=== PATIENT | female | born 1940 | race African-American/Black ===

== ENCOUNTER 2016-07-19 16:01 | Inpatient (IN) | payer MEDICARE, OTHER ==
[~2016-07-19] VITALS: Ht 162.6 cm; Wt 90.7 kg
[2016-07-19] MEDS ORDERED: METFORMIN HCL500 M1 ORAL (16:06)
[2016-07-19] MEDS ORDERED: CATAPRES0.1 MG ORAL (16:06)
[2016-07-19] MEDS ORDERED: ATENOLOL25 MG ORAL (16:06)
[2016-07-19] MEDS ORDERED: CLOPIDOGREL75 MG ORAL (16:06)
[2016-07-19] MEDS ORDERED: CRESTOR10 M2 ORAL (16:06)
[2016-07-19] MEDS ORDERED: FLECAINIDE ACE100 MG ORAL (16:06)
[2016-07-19 17:05] VITALS: BP 226/96
[2016-07-19 17:33] LABS: LYMPHOCYTES % (AUTO) 18.6 % (20.0-45.0); MEAN CORPUSCULAR HEMOGLOBIN 26.1 PG (27.0-31.0); MEAN CORPUSCULAR HGB CONC 29.6 G/DL (32.0-36.0); MEAN CORPUSCULAR VOLUME 88 FL (80-99); MEAN PLATELET VOLUME 7.4 FL (6.5-10.1); MONOCYTES % (AUTO) 5.4 % (1.0-10.0); NEUTROPHILS % (AUTO) 74.1 % (45.0-75.0); PLATELET COUNT 295 K/UL (150-450); RED BLOOD COUNT 4.08 M/UL (4.20-5.40); RED CELL DISTRIBUTION WIDTH 14.7 % (11.6-14.8); WHITE BLOOD COUNT 9.2 K/UL (4.8-10.8)
[2016-07-19 17:35] LABS: ALANINE AMINOTRANSFERASE 10 U/L (3-33); ANION GAP 17 (5-15); ASPARTATE AMINO TRANSFERASE 17 U/L (5-40); CALCIUM 10.1 mg/dL (8.6-10.2); CARBON DIOXIDE 27 mEQ/L (20-30); CHLORIDE 96 mEQ/L (98-107); CREATININE 0.8 mg/dL (0.5-0.9); HEMOLYSIS 2; POTASSIUM 3.4 mEQ/L (3.4-4.9); SODIUM 140 mEQ/L (135-145); TOTAL PROTEIN 8.1 g/dL (6.6-8.7)
[2016-07-19 17:36] LABS: TROPONIN I < 0.30 ng/mL (<=0.30)
[2016-07-19 17:46] LABS: CKMB 1.7 ng/mL (< 3.8)
[2016-07-19 18:00] VITALS: BP 211/114
[2016-07-19] MEDS ORDERED: Morphine Sulfate 2mg/ml Inj IVP ONE (18:30)
[2016-07-19] MEDS ORDERED: cloNIDine 0.2mg Tab ORAL ONE (18:30)
[2016-07-19 18:57] VITALS: BP 214/141
[2016-07-19 20:28] VITALS: BP 198/100
--- NOTE | 2016-07-19 20:36 | Emergency Room Report ---
History of Present Illness General Chief Complaint: Chest Pain Source: Patient, EMS Present Illness HPI [id number] with HTN, DM, HLD, on plavix for previous MT "years ago" with substernal non-radiating chest pain since last night. No assoc SOB, fever/chills, cough. Took a home SL nitro last night with some relief. Took another one this morning. Given additional nitro spray and ASA from EMS. Did NOT take any of her BP meds or Plavix today. Allergies: Coded Allergies: No Known Allergies (Unverified , 07/19/16) Patient History Past Medical History: DM, HTN, MT, other - HLD Past Surgical History: none Pertinent Family History: none Social History: Denies: alcohol use, drug use, smoking Now: No Immunizations: UTD Reviewed Nursing Documentation: PMH: Agreed, PSxH: Agreed Nursing Documentation-PMH Hx Cardiac Problems: Yes - STENT X 2 (2004) Hx Hypertension: Yes Hx Diabetes: Yes Review of Systems All Other Systems: negative except mentioned in HPI Physical Exam Vital Signs Date Time Temp Pulse Resp B/P Pulse Ox O2 Delivery O2 Flow Rate FiO2 07/19/16 16:00 98.2 101 14 226/96 99 Room Air Sp02 EP Interpretation: reviewed, abnormal General Appearance: normal inspection, well appearing, no apparent distress, alert, GCS 15, non-toxic Head: normocephalic, atraumatic Eyes: bilateral eye EOMI, bilateral eye PERRL ENT: normal ENT inspection, hearing grossly normal, normal voice Neck: normal inspection, full range of motion, supple, no bony tend Respiratory: normal inspection, lungs clear, normal breath sounds, no respiratory distress, no retraction, no wheezing Cardiovascular #1: regular rate, rhythm, no edema Gastrointestinal: normal inspection, normal bowel sounds, non tender, soft, no guarding, no hernia Genitourinary: no CVA tenderness Musculoskeletal: normal inspection, back normal, normal range of motion, Lauren' s Sign negative Neurologic: normal inspection, alert, oriented x3, responsive, training manager III-XII nml as tested, motor strength/tone normal, speech normal Psychiatric: normal inspection, judgement/insight normal, mood/affect normal Skin: normal inspection, normal color, no rash Lymphatic: normal inspection Medical Decision Making Medicare Attestation I Renaldo Alvarez MD hereby attest that the medical record entry for date of service, 03/21/16 accurately reflects signatures/notations that I made in my capacity as MD when I treated/diagnosed the above listed Medicare beneficiary. I attest that this information is true, accurate and complete to the best of my knowledge. I understand that any falsification, omission, or concealment of material fact may subject me to administrative, civil, or criminal liability. This patient warrants hospital admission for extreme of age and has a condition that cannot be treated as outpatient. Diagnostic Impression: Primary Impression: Chest pain Qualified Codes: R07.9 - Chest pain, unspecified Additional Impression: Hypertension Qualified Codes: I10 - Essential (primary) hypertension ER Course Labs: H&H stable. No leuks. Troponin 0. ECG: no ischemia. BP meds and Plavix given here Addtional nitro paste given here. Feels better now Admitted to Dr Michelle for tele at 830pm for ACS rule out. EKG Diagnostic Results Rate: normal Rhythm: NSR ST Segments: no acute changes Rhythm Strip Diag. Results EP Interpretation: yes Rate: 75 Rhythm: NSR, no PVC's, no ectopy Chest X-Ray Diagnostic Results EP Interpretation: Yes Findings: no consolidation, no effusion, no pneumothorax, no acute cardiopulmonary disease Number of Views: 1 Last Vital Signs Date Time Temp Pulse Resp B/P Pulse Ox O2 Delivery O2 Flow Rate FiO2 07/19/16 18:57 101 20 214/141 100 Room Air 07/19/16 17:05 98.2 Status: improved Disposition: ADMITTED INPATIENT Condition: Serious Referrals: NOT CHOSEN IPA/,REFERRING (PCP) RENALDO ALVAREZ M.D. Jul 19, 2016 20:36
[2016-07-19 21:37] LABS: TROPONIN I < 0.30 ng/mL (<=0.30)
[2016-07-19 21:45] VITALS: BP 201/118
[2016-07-19] MEDS ORDERED: Labetalol 5mg/ml 20ml vial IV STA (22:09)
[2016-07-19] MEDS ORDERED: LORazepam Inj 2mg/ml 1ml IV ONE (22:15)
[2016-07-19 22:23] VITALS: BP 161/82
[2016-07-19] MEDS ORDERED: Atenolol 25mg tab ORAL ONE (22:30)
[2016-07-20 00:13] VITALS: BP 183/100
[2016-07-20 04:06] VITALS: BP 133/65
[2016-07-20] MEDS: NovoLOG Insulin Flexpen SUBQ SCH ×4 (06:15→21:32)
[2016-07-20 07:19] LABS: BASOPHILS % (AUTO) 0.5 % (0.0-2.0); EOSINOPHILS % (AUTO) 0.9 % (0.0-3.0); MEAN CORPUSCULAR HEMOGLOBIN 26.3 PG (27.0-31.0); MEAN CORPUSCULAR HGB CONC 30.9 G/DL (32.0-36.0); MEAN CORPUSCULAR VOLUME 85 FL (80-99); MEAN PLATELET VOLUME 7.6 FL (6.5-10.1); MONOCYTES % (AUTO) 9.4 % (1.0-10.0); NEUTROPHILS % (AUTO) 70.1 % (45.0-75.0); PLATELET COUNT 355 K/UL (150-450); RED BLOOD COUNT 4.09 M/UL (4.20-5.40); RED CELL DISTRIBUTION WIDTH 14.7 % (11.6-14.8); WHITE BLOOD COUNT 10.6 K/UL (4.8-10.8)
[2016-07-20 07:27] LABS: ALANINE AMINOTRANSFERASE 9 U/L (3-33); ANION GAP 16 (5-15); ASPARTATE AMINO TRANSFERASE 17 U/L (5-40); CARBON DIOXIDE 29 mEQ/L (20-30); CHLORIDE 98 mEQ/L (98-107); CREATININE 0.9 mg/dL (0.5-0.9); HEMOLYSIS 2; POTASSIUM 3.4 mEQ/L (3.4-4.9); SODIUM 143 mEQ/L (135-145); TOTAL PROTEIN 7.6 g/dL (6.6-8.7)
[2016-07-20 08:25] VITALS: BP 158/83
[2016-07-20] MEDS: metFORMIN 500mg tab ORAL SCH ×2 (08:48→17:23)
[2016-07-20 11:24] VITALS: BP 147/77
--- NOTE | 2016-07-20 14:26 | Diagnostic Imaging Report ---
Indication: PAIN Technique: One view of the chest Comparison: none Findings: There is some atelectasis at the left lateral lung base. The heart size is normal. Aorta is tortuous and calcified. The upper mediastinum is unremarkable Impression: Left lateral basilar atelectasis. No acute process
--- NOTE | 2016-07-20 14:40 | General Progress Note ---
Progress Note Progress Note [id number] full consult dictated WILLIAM HERNANDEZ Jul 20, 2016 14:40
[2016-07-20 16:00] VITALS: BP 142/83
[2016-07-20 17:24] LABS: APPEARANCE,URINE CLEAR; KETONES,URINE NEGATIVE (NEGATIVE); LEUKOCYTE ESTERASE ,URINE NEGATIVE (NEGATIVE); NITRITE,URINE NEGATIVE (NEGATIVE); PH,URINE 6 (4.5-8.0); PROTEIN,URINE 2+ (NEGATIVE); UROBILINOGEN,URINE NORMAL MG/DL (0.0-1.0)
[2016-07-20 17:40] LABS: CREATININE, RANDOM URINE 157.9 mg/dL
[2016-07-20 17:44] LABS: RBC,URINE 0-2 /HPF (0 - 2)
[2016-07-20 17:45] LABS: BACTERIA,URINE FEW /HPF; SQUAMOUS EPITHELIAL CELL,UR FEW /LPF (NONE/OCC); WBC,URINE 0-2 /HPF (0 - 2)
--- NOTE | 2016-07-20 19:37 | History and Physical Report ---
DATE OF ADMISSION: 07/19/2016 HISTORY OF PRESENT ILLNESS: The patient is admitted for chest pain, rule out acute coronary syndrome. The patient is at very high risk of acute coronary disease. Her risk factors being her age, prior history of HI, hyperlipidemia, NIDDM, and hypertension. The patient states that she had chest pains two days ago that was initially relieved with nitroglycerin, but the second time, it was not. That was when, the patient decided to come to the ER and was admitted. The patient is status post HI in the past and has coronary stents x2. Denies orthopnea. Denies exertional shortness of breath. PAST MEDICAL HISTORY: CAD, status post HI; hypertension; NIDDM; and hyperlipidemia. PAST SURGICAL HISTORY: Stent x2, hysterectomy, and PTCA. MEDICATIONS: Plavix, clonidine, atenolol, metformin, and Crestor. FAMILY HISTORY: She does have history of hypertension and diabetes as well as heart disease. SOCIAL HISTORY: The patient has remote history of smoking. No history of drug or alcohol abuse. Lives at home alone. REVIEW OF SYSTEMS: HEENT: Denies headache. Respiratory: Denies shortness of breath. Denies cough. Cardiovascular: Reports chest pain for the past two days. No radiation. No palpitation. No shortness of breath or cough. Gastrointestinal: Does have occasional heartburn. Denies abdominal pain. Extremities: Denies pain in lower extremities. Central Nervous System: Denies change in vision or speech pattern. PHYSICAL EXAMINATION: VITAL SIGNS: Temperature is 98.3, pulse 74, and blood pressure is 133/65. HEENT: PERRLA. NECK: Supple. No lymphadenopathy. CHEST: Clear to auscultation. CARDIOVASCULAR: Regular rate and rhythm. . GASTROINTESTINAL: Soft, nontender, and nondistended. No organomegaly. EXTREMITIES: 1+ edema. Reflexes are equal on both sides. Moves all four extremities. LABORATORY AND DIAGNOSTIC DATA: WBC of 9.2, hemoglobin of 10.6, and platelets 295,000. Sodium 140, BUN 3.4, BUN of 10, creatinine of 0.8, and glucose of 136. EKG does not show any ST depression or elevations. ASSESSMENT AND PLAN: Chest pain. Troponin is negative so far. Rule out acute coronary syndrome. The patient is a very high risk for myocardial infarction given her previous history of myocardial infarction as well as risk factors of hypertension, diabetes, hyperlipidemia, obesity, as well as age. I have asked Dr. Pablo and Dr. Heaton to see the patient for the elevated blood pressure and chest pain workup. Christopher Naranjo M.D. DR: SUZIE JOB#: [id number] CC:
[2016-07-20 20:00] VITALS: BP 143/75
[2016-07-20] MEDS ORDERED: LORazepam 1mg tab ORAL PRN (20:15)
[2016-07-20] MEDS: Atenolol 25mg tab ORAL SCH (22:05)
[2016-07-20] MEDS: Aspirin EC 81mg tab ORAL SCH (22:05)
--- NOTE | 2016-07-20 22:28 | Consultation ---
DATE OF CONSULTATION: 07/20/2016 NEPHROLOGY CONSULTATION: REFERRING PHYSICIAN: Christopher Naranjo M.D. REASON FOR CONSULTATION: Uncontrolled hypertension and possible history of diabetic nephropathy. HISTORY OF PRESENT ILLNESS: The patient is a 76-year-old female with past medical history significant for diabetes, hypertension, history of NJ in 2004, and history of morbid obesity, who apparently presented to the emergency room at [facility] complaining of chest pain. Her chest pain started around Monday night which was associated with some palpitation. The patient received sublingual nitroglycerin, the pain subsided. Again, the next day, which was Monday, a day before prior hospital visit. She started having the palpitation which was associated with chest pain. The chest pain came with palpitation. The chest pain was not radiating to her left arm and was not associated with shortness of breath and she described it as substernal pain, 8/10 associated with palpitation, not radiating, was not associated with shortness of breath. She described the pain as sharp pain lasted for many hours. The patient basically was described the pain totally different than the first time when she had an NJ. She came to the emergency room and was admitted with diagnosis of acute coronary syndrome and found to have an elevated blood pressure. I was called for management of the issue. PAST MEDICAL HISTORY: 1. Diabetes. 2. Hypertension. 3. Diabetic retinopathy. 4. Dyslipidemia. 5. Hypertension. 6. History of NJ in 2004. PAST SURGICAL HISTORY: None. MEDICATIONS: Home medications are including, 1. Metformin 500 mg p.o. daily. 2. Insulin. 3. Clonidine 0.1 mg. 4. Crestor 10 mg p.o. daily. 5. Atenolol 25 mg. 6. Plavix 75 mg p.o. daily. SOCIAL HISTORY: Quit smoking many years ago. She lives alone. There is no history of alcohol or drug use. FAMILY HISTORY: Negative for any history of premature heart disease. REVIEW OF SYSTEMS: General: She complain of generalized weakness. HEENT: Denied any blurry vision, headache, or neck stiffness. Pulmonary: No shortness of breath, cough, or sputum. Cardiovascular: Admission History Of Present Illness. GI: Denies any nausea, vomiting, diarrhea, hematemesis, or hematochezia. : Denies any dysuria, frequency, or hematuria. Musculoskeletal: She complain of generalized weakness. Denies any localized weakness or numbness. PHYSICAL EXAMINATION: VITAL SIGNS: The patient has a temperature of 98 degrees, blood pressure 133/65, pulse rate 74, and respiratory rate 18. HEAD AND NECK: No JVP. No LAD. No thyromegaly. Extraocular movement intact. Pupils are reactive to light and accommodation. LUNGS: Clear to auscultation. CARDIAC: Regular rate and rhythm. S1-S2. Positive systolic murmur. ABDOMEN: Soft, nontender, and nondistended. EXTREMITIES: No edema. No clubbing. No cyanosis. LABORATORY AND DIAGNOSTIC DATA: The patient has a WBC count 10.6, hemoglobin 10.8, hematocrit 34, and platelet count 355,000. Chemistry with sodium 143, potassium 3.4, 98 chloride, 28 bicarbonate, BUN 11, creatinine 0.9, and glucose 145. Calcium 10. AST 17 and ALT 9. Total protein of 7.6. Albumin 3.9. There is no UA. ASSESSMENT: 1. Hypertensive crisis. 2. Diabetic nephropathy. 3. Hypokalemia. 4. Acute coronary syndrome. 5. Hypertension. 6. Dyslipidemia. PLAN: Continue with current antihypertensive medication. I would consider starting a Norvasc. I would do cardiac monitoring. I would do UA. I would do random urine protein/creatinine ratio to calculate the proteinuria. Check the urine. Monitor albumin. Replace the potassium. Check the magnesium level. Check the cardiac enzymes. Check echo. I would check the A1c. Recommend A1c for this patient in 6 to 7. Monitor renal function and electrolytes closely. Again, I would like to thank Dr. Jose A White for allowing me to participate in the care of this patient. Phyllis Heaton M.D. DR: Patricia JOB#: [id number] CC:
--- NOTE | 2016-07-20 23:09 | Cardiology Report ---
APPROVED REPORT EKG Measurement Heart [id number] [place] [id number] Normal sinus rhythm Possible Left atrial enlargement Left ventricular hypertrophy Inferior infarct, age undetermined Abnormal ECG
[2016-07-21] VITALS (7 sets, daily range): BP systolic 126–159; BP diastolic 74–94
--- NOTE | 2016-07-21 00:38 | Consultation ---
DATE OF CONSULTATION: 07/20/2016 CARDIOLOGY CONSULTATION CONSULTING PHYSICIAN: Praveen Pablo M.D. REFERRING PHYSICIAN: Christopher Naranjo M.D. REASON FOR CONSULTATION: Management of chest pain. HISTORY OF PRESENT ILLNESS: The patient is seen and examined. Medical records reviewed. Full consultation will be dictated shortly. Praveen Pablo M.D. DR: RESHMA JOB#: [id number] CC:
[2016-07-21] MEDS: NovoLOG Insulin Flexpen SUBQ SCH ×4 (06:33→20:28)
[2016-07-21] MEDS: metFORMIN 500mg tab ORAL SCH ×2 (08:17→17:45)
[2016-07-21] MEDS: Aspirin EC 81mg tab ORAL SCH (08:17)
[2016-07-21] MEDS: Atenolol 25mg tab ORAL SCH (08:17)
--- NOTE | 2016-07-21 10:10 | Nephrology Progress Note ---
Assessment/Plan Assessment . 1. Hypertensive crisis. 2. Diabetic nephropathy. 3. Hypokalemia. 4. Acute coronary syndrome. 5. Hypertension. 6. Dyslipidemia. Plan plan to continue current bp meds consider adding lisinopril 10 mg daily monitoring renal function avoid any NSAID Subjective Constitutional: Reports: no symptoms HEENT: Reports: no symptoms Genitourinary: Reports: no symptoms Neurologic/Psychiatric: Reports: no symptoms Subjective alert and awake cp free no palpitation Objective Objective Last 24 Hour Vital Signs Date Time Temp Pulse Resp B/P Pulse Ox O2 Delivery O2 Flow Rate FiO2 07/21/16 09:00 80 140/94 07/21/16 08:40 97.5 79 18 150/86 96 Room Air 07/21/16 08:17 79 150/86 07/21/16 08:17 79 150/86 07/21/16 08:00 77 07/21/16 04:16 98.8 83 18 159/74 94 Room Air 07/21/16 04:00 74 07/21/16 00:35 98.3 72 19 126/77 98 Room Air 07/21/16 00:00 70 07/20/16 22:06 73 143/75 07/20/16 22:05 73 143/75 07/20/16 20:00 97.0 73 20 143/75 95 Room Air 07/20/16 20:00 76 07/20/16 16:00 96.8 89 21 142/83 95 Room Air 07/20/16 16:00 99 07/20/16 12:00 74 07/20/16 11:24 97.7 74 18 147/77 96 Room Air Intake and Output 07/20/16 07/21/16 19:00 07:00 Intake Total 480 ml 300 ml Output Total 600 ml Balance -120 ml 300 ml Intake Oral 480 ml 300 ml Output Urine Total 600 ml # Voids 2 Laboratory Tests 07/20/16 16:00: Urine Color Yellow, Urine Appearance Clear, Urine pH 6, Urine Specific [place] 1.010, Urine Protein 2+H, Urine Glucose (UA) Negative, Urine Ketones Negative, Urine Occult Blood 1+H, Urine Nitrite Negative, Urine Bilirubin Negative, Urine Urobilinogen Normal, Urine Leukocyte Esterase Negative, Urine RBC 0-2, Urine WBC 0-2, Urine Squamous Epithelial Cells Few, Urine Bacteria Few, Urine Eosinophils None seen, Urine Random Creatinine [Pending], Urine Random Microalbumin [Pending], Urine Random Total Protein 38, Urine Random Sodium 42, Urine Creatinine 157.9, Urine Microalbumin/Creatinine Ratio [Pending] Height (Feet): 5 Height (Inches): 4.00 Weight (Pounds): 200 Objective HEAD AND NECK: No JVP. No LAD. No thyromegaly. Extraocular movement intact. Pupils are reactive to light and accommodation. LUNGS: Clear to auscultation. CARDIAC: Regular rate and rhythm. S1-S2. Positive systolic murmur. ABDOMEN: Soft, nontender, and nondistended. EXTREMITIES: No edema. No clubbing. No cyanosis. WILLIAM HERNANDEZ Jul 21, 2016 10:10
[2016-07-21] MEDS ORDERED: Lisinopril 2.5mg tab ORAL SCH (11:00)
--- NOTE | 2016-07-21 11:38 | General Progress Note ---
Assessment/Plan Problem List: (1) Chest pain ICD Codes: R07.9 - Chest pain, unspecified SNOMED: [id number] Qualifiers: Qualified Codes: R07.9 - Chest pain, unspecified (2) Hypertension ICD Codes: I10 - Essential (primary) hypertension SNOMED: [id number] Qualifiers: Qualified Codes: I10 - Essential (primary) hypertension Status: progressing Assessment/Plan afebrile vitals stable chest pain high risk for acs neg trop Subjective ROS Limited/Unobtainable: Yes Constitutional: Reports: no symptoms Allergies: Coded Allergies: No Known Allergies (Unverified , 07/19/16) Subjective weak Objective Last 24 Hour Vital Signs Date Time Temp Pulse Resp B/P Pulse Ox O2 Delivery O2 Flow Rate FiO2 07/21/16 10:50 140/94 07/21/16 09:00 80 140/94 07/21/16 08:40 97.5 79 18 150/86 96 Room Air 07/21/16 08:17 79 150/86 07/21/16 08:17 79 150/86 07/21/16 08:00 77 07/21/16 04:16 98.8 83 18 159/74 94 Room Air 07/21/16 04:00 74 07/21/16 00:35 98.3 72 19 126/77 98 Room Air 07/21/16 00:00 70 07/20/16 22:06 73 143/75 07/20/16 22:05 73 143/75 07/20/16 20:00 97.0 73 20 143/75 95 Room Air 07/20/16 20:00 76 07/20/16 16:00 96.8 89 21 142/83 95 Room Air 07/20/16 16:00 99 07/20/16 12:00 74 Intake and Output 07/20/16 07/21/16 19:00 07:00 Intake Total 480 ml 300 ml Output Total 600 ml Balance -120 ml 300 ml Intake Oral 480 ml 300 ml Output Urine Total 600 ml # Voids 2 Laboratory Tests 07/20/16 16:00: Urine Color Yellow, Urine Appearance Clear, Urine pH 6, Urine Specific [place] 1.010, Urine Protein 2+H, Urine Glucose (UA) Negative, Urine Ketones Negative, Urine Occult Blood 1+H, Urine Nitrite Negative, Urine Bilirubin Negative, Urine Urobilinogen Normal, Urine Leukocyte Esterase Negative, Urine RBC 0-2, Urine WBC 0-2, Urine Squamous Epithelial Cells Few, Urine Bacteria Few, Urine Eosinophils None seen, Urine Random Creatinine [Pending], Urine Random Microalbumin [Pending], Urine Random Total Protein 38, Urine Random Sodium 42, Urine Creatinine 157.9, Urine Microalbumin/Creatinine Ratio [Pending] Height (Feet): 5 Height (Inches): 4.00 Weight (Pounds): 200 EENT: PERRL/EOMI Neck: supple Cardiovascular: normal rate Abdomen: normal bowel sounds, soft Christopher Naranjo MD Jul 21, 2016 11:38
[2016-07-21 14:19] LABS: CREATININE RANDOM URINE 150.9 mg/dL (Not Estab.); MICROALBUMIN/CREATININE RATIO 72.6 mg/g creat (0.0-30.0)
--- NOTE | 2016-07-21 21:10 | Cardiology Progress Note ---
Assessment/Plan Assessment/Plan 1. Atypical chest pain, accelerated HTN may account for chest pain and her SOB, currently CP free, continue lisinopril, atenolol and amlodipine, 2. HTN 3. DM 4. Hx of CAD, s/p PCI, continue ASA and atorvastatin. Subjective Subjective Sinus rhythm at 75. Objective Last 24 Hour Vital Signs Date Time Temp Pulse Resp B/P Pulse Ox O2 Delivery O2 Flow Rate FiO2 07/21/16 20:00 97.1 84 21 137/80 98 Room Air 07/21/16 16:00 97.0 77 21 151/82 95 Room Air 07/21/16 12:00 70 07/21/16 11:50 97.0 72 18 139/76 100 Room Air 07/21/16 10:50 140/94 07/21/16 09:00 80 140/94 07/21/16 08:40 97.5 79 18 150/86 96 Room Air 07/21/16 08:17 79 150/86 07/21/16 08:17 79 150/86 07/21/16 08:00 77 07/21/16 04:16 98.8 83 18 159/74 94 Room Air 07/21/16 04:00 74 07/21/16 00:35 98.3 72 19 126/77 98 Room Air 07/21/16 00:00 70 07/20/16 22:06 73 143/75 07/20/16 22:05 73 143/75 Intake and Output 07/20/16 07/21/16 19:00 07:00 Intake Total 480 ml 300 ml Output Total 600 ml Balance -120 ml 300 ml Intake Oral 480 ml 300 ml Output Urine Total 600 ml # Voids 2 Objective HEENT: Normocephalic, atraumatic, Extraocular movement intact. Pupils are reactive to light and accommodation. NECK: No JVP, No carotid bruit, with upstroke 2+ LUNGS: Clear to auscultation. CARDIAC: Regular rate and rhythm. S1-S2. 2/6 MSM At LSB ABDOMEN: Soft, nontender, and nondistended, no HSM, + BS EXTREMITIES: No edema, clubbing or cyanosis. ANETA LA Jul 21, 2016 21:10
[2016-07-22] VITALS: BP_SYST 146; BP_SYST 154; BP_DIAS 72; BP_DIAS 87
[2016-07-22] MEDS ORDERED: FLECAINIDE ACET50 M1 PO (00:08)
[2016-07-22 04:00] VITALS: BP 154/87
[2016-07-22] MEDS: NovoLOG Insulin Flexpen SUBQ SCH ×4 (07:15→21:14)
[2016-07-22 08:12] VITALS: BP 149/84
[2016-07-22 08:36] LABS: CHOLESTEROL/HDL RATIO 3.9 (3.3-4.4)
[2016-07-22] MEDS: metFORMIN 500mg tab ORAL SCH ×2 (08:59→17:40)
[2016-07-22] MEDS: Aspirin EC 81mg tab ORAL SCH (09:02)
[2016-07-22] MEDS: Imdur 30mg tab ORAL SCH (09:02)
[2016-07-22] MEDS: Eliquis 2.5mg tablet ORAL SCH ×2 (09:05→17:41)
--- NOTE | 2016-07-22 10:21 | Nephrology Progress Note ---
Assessment/Plan Assessment 1. Hypertensive crisis. 2. Diabetic nephropathy. 3. Hypokalemia. 4. Acute coronary syndrome. 5. Hypertension. 6. Dyslipidemia. Plan plan to continue current bp meds monitoring renal function avoid any NSAID increase avapro Subjective Constitutional: Reports: no symptoms HEENT: Reports: no symptoms Genitourinary: Reports: no symptoms Neurologic/Psychiatric: Reports: no symptoms Subjective alert and awake cp free no palpitation Objective Objective Last 24 Hour Vital Signs Date Time Temp Pulse Resp B/P Pulse Ox O2 Delivery O2 Flow Rate FiO2 07/22/16 09:03 149/84 07/22/16 09:02 149/84 07/22/16 09:02 100 149/84 07/22/16 09:00 100 149/84 07/22/16 08:12 96.4 100 18 149/84 95 Room Air 07/22/16 07:33 86 07/22/16 04:00 79 07/22/16 04:00 97.7 79 18 154/87 94 Room Air 07/22/16 00:00 84 07/22/16 00:00 97.0 84 21 146/72 97 Room Air 07/21/16 20:00 97.1 84 21 137/80 98 Room Air 07/21/16 20:00 84 07/21/16 16:00 97.0 77 21 151/82 95 Room Air 07/21/16 16:00 70 07/21/16 12:00 70 07/21/16 11:50 97.0 72 18 139/76 100 Room Air 07/21/16 10:50 140/94 Intake and Output 07/21/16 07/22/16 19:00 07:00 Intake Total 240 ml 300 ml Output Total 350 ml Balance -110 ml 300 ml Intake Oral 240 ml 300 ml Output Urine Total 350 ml # Voids 1 5 Laboratory Tests 07/22/16 07:49: Hemoglobin A1c 6.8H, Triglycerides Level 92, Cholesterol Level 180, LDL Cholesterol 116H, HDL Cholesterol 46, Cholesterol/HDL Ratio 3.9 Height (Feet): 5 Height (Inches): 4.00 Weight (Pounds): 200 Objective HEAD AND NECK: No JVP. No LAD. No thyromegaly. Extraocular movement intact. Pupils are reactive to light and accommodation. LUNGS: Clear to auscultation. CARDIAC: Regular rate and rhythm. S1-S2. Positive systolic murmur. ABDOMEN: Soft, nontender, and nondistended. EXTREMITIES: No edema. No clubbing. No cyanosis. WILLIAM HERNANDEZ Jul 22, 2016 10:21
[2016-07-22 11:20] VITALS: BP 131/71
--- NOTE | 2016-07-22 12:09 | Diagnostic Imaging Report ---
APPROVED REPORT CPT Code: 27889 Present Symptoms Comments: Chest pain BILATERAL: Imaging reveals a patent deep venous system bilaterally. There is no evidence of thrombus within the femoral, popliteal or tibial segments. The greater saphenous veins are also within normal limits. Doppler indicates normal spontaneous flow within these segments.
[2016-07-22 16:00] VITALS: BP 112/67
[2016-07-22 20:00] VITALS: BP 133/67
[2016-07-23 00:25] VITALS: BP 149/74
[2016-07-23 04:30] VITALS: BP 150/82
[2016-07-23] MEDS: NovoLOG Insulin Flexpen SUBQ SCH ×4 (06:20→20:43)
[2016-07-23 07:47] VITALS: BP 149/72
[2016-07-23] MEDS: Imdur 30mg tab ORAL SCH (08:17)
[2016-07-23] MEDS: Eliquis 2.5mg tablet ORAL SCH ×2 (08:17→17:24)
[2016-07-23] MEDS: Aspirin EC 81mg tab ORAL SCH (08:18)
[2016-07-23] MEDS: metFORMIN 500mg tab ORAL SCH ×2 (08:19→17:23)
--- NOTE | 2016-07-23 09:11 | General Progress Note ---
Assessment/Plan Problem List: (1) Chest pain ICD Codes: R07.9 - Chest pain, unspecified SNOMED: [id number] Qualifiers: Qualified Codes: R07.9 - Chest pain, unspecified (2) Hypertension ICD Codes: I10 - Essential (primary) hypertension SNOMED: [id number] Qualifiers: Qualified Codes: I10 - Essential (primary) hypertension Status: progressing Assessment/Plan high risk for acs no chest pain today discuss w cardiology re plan of care Subjective ROS Limited/Unobtainable: Yes Constitutional: Reports: no symptoms Allergies: Coded Allergies: No Known Allergies (Unverified , 07/19/16) Subjective weak Objective Last 24 Hour Vital Signs Date Time Temp Pulse Resp B/P Pulse Ox O2 Delivery O2 Flow Rate FiO2 07/23/16 08:19 80 149/72 07/23/16 08:18 149/72 07/23/16 08:17 149/72 07/23/16 08:17 80 149/72 07/23/16 07:47 97.9 80 18 149/72 94 Nasal Cannula 07/23/16 04:30 97.3 80 20 150/82 96 Room Air 07/23/16 04:00 78 07/23/16 00:25 98.3 87 20 149/74 94 07/23/16 00:00 76 07/22/16 20:00 97.5 78 18 133/67 94 Room Air 07/22/16 19:45 78 07/22/16 16:00 76 07/22/16 16:00 97.3 74 18 112/67 93 Room Air 07/22/16 12:16 69 07/22/16 11:20 97.5 78 18 131/71 96 Room Air Intake and Output 07/22/16 07/23/16 19:00 07:00 Intake Total 500 ml 300 ml Output Total 450 ml Balance 50 ml 300 ml Intake Oral 500 ml 300 ml Output Urine Total 450 ml # Voids 2 # Bowel Movements 1 Height (Feet): 5 Height (Inches): 4.00 Weight (Pounds): 200 EENT: PERRL/EOMI Neck: supple Cardiovascular: normal rate Respiratory/Chest: lungs clear Abdomen: soft Christopher Naranjo MD Jul 23, 2016 09:11
[2016-07-23 11:28] VITALS: BP 128/77
[2016-07-23 16:20] VITALS: BP 120/69
[2016-07-23 20:00] VITALS: BP 124/56
[2016-07-24] VITALS (8 sets, daily range): BP systolic 124–153; BP diastolic 59–93
--- NOTE | 2016-07-24 01:18 | Progress Note ---
DATE: 07/23/2016 CARDIOLOGY PROGRESS NOTE Coverage for Dr. Pablo. SUBJECTIVE: The patient is without chest pain. No shortness of breath. OBJECTIVE: VITAL SIGNS: Blood pressure 124/56, heart rate 82, respiratory rate 20, afebrile, and room air oxygen saturation 95%. NECK: Supple. LUNGS: Clear. CARDIAC: Regular. Normal S1 and S2. ABDOMEN: Soft. EXTREMITIES: No edema. LABORATORY DATA: Labs pending. Lipid panel reviewed. Notable for total cholesterol 180 and LDL of 116 with HDL of 46. IMPRESSION: 1. Accelerated hypertension, well controlled. 2. Atypical chest pain with no recurrence and no clinical signs of acute coronary insufficiency. 3. Type 2 diabetes mellitus, stable. 4. Coronary artery disease. 5. History of coronary stent. PLAN: 1. Adequate lipid control. 2. May consider advancing statin further for LDL goal less than 100. 3. Maintain current antihypertensive regimen. 4. We will consider myocardial perfusion scan for assessment of coronary flow reserve. Jorge Chin M.D. DR: BELKIS JOB#: [id number] CC:
[2016-07-24] MEDS: NovoLOG Insulin Flexpen SUBQ SCH ×4 (06:18→21:07)
[2016-07-24] MEDS: Aspirin EC 81mg tab ORAL SCH (09:15)
[2016-07-24] MEDS: metFORMIN 500mg tab ORAL SCH ×2 (09:15→17:44)
[2016-07-24] MEDS: Imdur 30mg tab ORAL SCH (09:15)
[2016-07-24] MEDS: Eliquis 2.5mg tablet ORAL SCH ×2 (09:15→17:44)
--- NOTE | 2016-07-24 09:56 | General Progress Note ---
Assessment/Plan Problem List: (1) Chest pain ICD Codes: R07.9 - Chest pain, unspecified SNOMED: 68706758 Qualifiers: Qualified Codes: R07.9 - Chest pain, unspecified (2) Hypertension ICD Codes: I10 - Essential (primary) hypertension SNOMED: 72115471 Qualifiers: Qualified Codes: I10 - Essential (primary) hypertension Status: progressing Assessment/Plan high risk for acs dc planning needs hh to moniter bg and bp Subjective ROS Limited/Unobtainable: Yes Constitutional: Reports: no symptoms Allergies: Coded Allergies: No Known Allergies (Unverified , 07/19/16) Subjective weak Objective Last 24 Hour Vital Signs Date Time Temp Pulse Resp B/P Pulse Ox O2 Delivery O2 Flow Rate FiO2 07/24/16 09:15 136/59 07/24/16 07:57 97.7 91 18 136/59 96 Room Air 07/24/16 04:05 98.4 84 20 153/73 98 Room Air 07/24/16 04:00 79 07/24/16 00:19 98.3 82 19 141/72 96 Room Air 07/24/16 00:00 79 07/23/16 20:00 97.7 83 20 124/56 95 Room Air 07/23/16 20:00 83 07/23/16 16:20 97.5 73 20 120/69 97 Room Air 07/23/16 16:07 72 07/23/16 11:56 77 07/23/16 11:28 98.1 96 18 128/77 95 Room Air Intake and Output 07/23/16 07/24/16 19:00 07:00 Intake Total 490 ml 240 ml Output Total 450 ml Balance 40 ml 240 ml Intake Oral 490 ml 240 ml Output Urine Total 450 ml # Voids 4 Height (Feet): 5 Height (Inches): 4.00 Weight (Pounds): 200 EENT: PERRL/EOMI Neck: supple Cardiovascular: normal peripheral pulses Respiratory/Chest: lungs clear Christopher Naranjo MD Jul 24, 2016 09:56
--- NOTE | 2016-07-24 15:39 | Consultation ---
Consult Note Consult Note HEMATOLOGY CONSULTATION NOTE DATE OF CONSULT: 07/24/2016 REASON FOR CONSULT: Eval of anemia REQUESTING MD: JAYCOB VÁZQUEZ MD HISTORY OF PRESENT ILLNESS: 76y old female with a pmhx of DM2, admitted for chest pain, rule out acute coronary syndrome. The patient is at very high risk of acute coronary disease. Her risk factors being her age, prior history of IL , hyperlipidemia, NIDDM, and hypertension. The patient states that she had chest pains two days ago that was initially relieved with nitroglycerin, but the second time, it was not. That was when, the patient decided to come to the ER and was admitted. The patient is status post IL in the past and has coronary stents x2. Denies orthopnea. Denies exertional shortness of breath. She was noted to be anemic, with a hgb of 10.6 and hematology service was consulted. PAST MEDICAL HISTORY: CAD, status post IL; hypertension; NIDDM; and hyperlipidemia. PAST SURGICAL HISTORY: Stent x2, hysterectomy, and PTCA. MEDICATIONS: Plavix, clonidine, atenolol, metformin, and Crestor. FAMILY HISTORY: She does have history of hypertension and diabetes as well as heart disease. SOCIAL HISTORY: The patient has remote history of smoking. No history of drug or alcohol abuse. Lives at home alone. REVIEW OF SYSTEMS: HEENT: Denies headache. Respiratory: Denies shortness of breath. Denies cough. Cardiovascular: Reports chest pain for the past two days. No radiation. No palpitation. No shortness of breath or cough. Gastrointestinal : Does have occasional heartburn. Denies abdominal pain. Extremities: Denies pain in lower extremities. Central Nervous System: Denies change in vision or speech pattern. PHYSICAL EXAM: VITAL SIGNS: Temperature is 98.3, pulse 74, BP133/65. HEENT: PERRLA. NECK: Supple. No lymphadenopathy. CHEST: Clear to auscultation. CARDIOVASCULAR: Regular rate and rhythm. GASTROINTESTINAL: Soft, nontender, and nondistended EXTREMITIES: 1+ edema. Reflexes are equal on both sides. LABORATORY AND DIAGNOSTIC DATA: WBC of 9.2, hemoglobin of 10.6, platelets 295,000. BUN of 10, creatinine of 0.8 ASSESSMENT: #. Anemia 2/2 chronic disease - hgb is 10.8, will send off anemia w/u to see if any reversible causes #. Accelerated hypertension, well controlled. #. Atypical chest pain with no recurrence and no clinical signs of acute coronary insufficiency. #. Type 2 diabetes mellitus, stable. #. Coronary artery disease. #. History of coronary stent PLAN: 1. Anemia w/u has been ordered 2. Monitor counts 3. Transfuse as needed, hgb goal >7 4. Appreciate nephro and cardio recs 5. Obtain peripheral smear 6. Hold off on iron or epogen at the moment 7. DVT ppx with heparins q 8. Appreciate consultation! Jose Mercado Jul 24, 2016 15:39
[2016-07-24 16:29] LABS: FERRITIN 15 ng/mL (13-150)
[2016-07-24 16:33] LABS: HEMOLYSIS 2; IRON 37 ug/dL (37-145); TOTAL IRON BINDING CAPACITY 387 ug/dL (250-400)
[2016-07-25] VITALS: BP 127/68
[2016-07-25 04:00] VITALS: BP 160/77
--- NOTE | 2016-07-25 04:28 | Progress Note ---
SUBJECTIVE: The patient has not had chest pain. OBJECTIVE: VITAL SIGNS: Her blood pressure was labile today, but overall controlled. No shortness of breath. She continues to have orthopnea and leg edema. Vitals, blood pressure 136/59, pulse 91, respiratory rate 18, afebrile, and room air oxygen saturation 96% to 98%. NECK: Supple. LUNGS: With diminished breath sounds. CARDIAC: Regular rhythm and rate. Normal S1 and S2 with a fourth heart sound. ABDOMEN: Obese and soft. EXTREMITIES: 1+ dependent edema. LABORATORY DATA: Reviewed. IMPRESSION: 1. Anginal syndrome, now stabilized. 2. Hypertensive heart disease with labile blood pressure, improving. 3. Iron deficiency with anemia. 4. [id number] diastolic congestive heart failure. 5. Type 2 diabetes mellitus. PLAN: 1. Optimize antihypertensive and anti-failure regimen. 2. Check natriuretic peptide assay. 3. Reassess for diuresis. Consider intravenous iron replacement. 4. Follow up hemoglobin and potassium level. 5. DVT prophylaxis. Defer stress test until optimized comorbidities. Jorge Chin M.D. DR: Joan JOB#: [id number] CC:
[2016-07-25 04:51] VITALS: BP 134/68
[2016-07-25] MEDS: NovoLOG Insulin Flexpen SUBQ SCH ×3 (05:49→16:30)
[2016-07-25 07:14] LABS: BASOPHILS % (AUTO) 0.7 % (0.0-2.0); EOSINOPHILS % (AUTO) 2.4 % (0.0-3.0); LYMPHOCYTES % (AUTO) 28.4 % (20.0-45.0); MEAN CORPUSCULAR HEMOGLOBIN 26.9 PG (27.0-31.0); MEAN CORPUSCULAR HGB CONC 31.5 G/DL (32.0-36.0); MEAN CORPUSCULAR VOLUME 86 FL (80-99); MEAN PLATELET VOLUME 7.7 FL (6.5-10.1); MONOCYTES % (AUTO) 8.5 % (1.0-10.0); PLATELET COUNT 329 K/UL (150-450); RED BLOOD COUNT 3.74 M/UL (4.20-5.40); WHITE BLOOD COUNT 10.1 K/UL (4.8-10.8)
[2016-07-25 07:50] LABS: ALANINE AMINOTRANSFERASE 13 U/L (3-33); ALBUMIN/GLOBULIN RATIO 1.1 (1.0-2.7); ANION GAP 15 (5-15); ASPARTATE AMINO TRANSFERASE 18 U/L (5-40); CALCIUM 9.5 mg/dL (8.6-10.2); CARBON DIOXIDE 29 mEQ/L (20-30); CHLORIDE 100 mEQ/L (98-107); CREATININE 0.8 mg/dL (0.5-0.9); HEMOLYSIS 1; MAGNESIUM 1.5 mg/dL (1.7-2.5); POTASSIUM 3.7 mEQ/L (3.4-4.9); SODIUM 144 mEQ/L (135-145); TOTAL PROTEIN 7.2 g/dL (6.6-8.7)
[2016-07-25 08:00] VITALS: BP 147/84
[2016-07-25] MEDS: Imdur 30mg tab ORAL SCH (08:49)
[2016-07-25] MEDS: metFORMIN 500mg tab ORAL SCH (08:49)
[2016-07-25] MEDS: Eliquis 2.5mg tablet ORAL SCH (08:49)
[2016-07-25] MEDS: Aspirin EC 81mg tab ORAL SCH (08:50)
[2016-07-25 12:00] VITALS: BP 127/76
--- NOTE | 2016-07-25 15:01 | General Progress Note ---
Assessment/Plan Problem List: (1) Chest pain ICD Codes: R07.9 - Chest pain, unspecified SNOMED: [id number] Qualifiers: Qualified Codes: R07.9 - Chest pain, unspecified (2) Hypertension ICD Codes: I10 - Essential (primary) hypertension SNOMED: [id number] Qualifiers: Qualified Codes: I10 - Essential (primary) hypertension Status: progressing Assessment/Plan cleared by cardiology for dc so dc home w for bp monitering Subjective ROS Limited/Unobtainable: Yes Constitutional: Reports: no symptoms Allergies: Coded Allergies: No Known Allergies (Unverified , 07/19/16) Subjective weak Objective Last 24 Hour Vital Signs Date Time Temp Pulse Resp B/P Pulse Ox O2 Delivery O2 Flow Rate FiO2 07/25/16 12:00 69 07/25/16 12:00 97.9 71 17 127/76 98 Room Air 07/25/16 08:50 90 147/84 07/25/16 08:50 147/84 07/25/16 08:49 147/84 07/25/16 08:49 90 147/84 07/25/16 08:00 88 07/25/16 08:00 96.8 90 18 147/84 94 Room Air 07/25/16 04:51 134/68 07/25/16 04:00 97.5 81 21 160/77 94 Room Air 07/25/16 04:00 82 07/25/16 00:00 81 07/25/16 00:00 97.9 82 21 127/68 95 Room Air 07/24/16 20:00 97.5 83 21 124/93 97 Room Air 07/24/16 20:00 78 07/24/16 16:00 81 07/24/16 15:45 97.7 75 18 137/73 97 Room Air Intake and Output 07/24/16 07/25/16 19:00 07:00 Intake Total 720 ml 150 ml Balance 720 ml 150 ml Intake Oral 720 ml 150 ml # Voids 3 1 # Bowel Movements 1 1 Laboratory Tests 07/24/16 15:45: Reticulocyte Count 0.8, Haptoglobin 224H, Fibrinogen 596H, Iron Level 37, Total Iron Binding Capacity 387, Percent Iron Saturation 10L, Unsaturated Iron Binding 350H, Ferritin 15, Folate [Pending], HIV (1&2) Antibody Rapid Negative 07/24/16 23:00: Stool Occult Blood Positive 07/25/16 04:30: White Blood Count 10.1, Red Blood Count 3.74L, Hemoglobin 10.1L, Hematocrit 32.0L, Mean Corpuscular Volume 86, Mean Corpuscular Hemoglobin 26.9L, Mean Corpuscular Hemoglobin Concent 31.5L, Red Cell Distribution Width 15.0H, Platelet Count 329, Mean Platelet Volume 7.7, Neutrophils (%) (Auto) 60.0, Lymphocytes (%) (Auto) 28.4, Monocytes (%) (Auto) 8.5, Eosinophils (%) (Auto) 2.4, Basophils (%) (Auto) 0.7, Sodium Level 144, Potassium Level 3.7, Chloride Level 100, Carbon Dioxide Level 29, Anion Gap 15, Blood Urea Nitrogen 10, Creatinine 0.8, Estimat Glomerular Filtration Rate , Glucose Level 116H, Calcium Level 9.5, Magnesium Level 1.5L, Total Bilirubin 0.4, Aspartate Amino Transf (AST/SGOT) 18, Alanine Aminotransferase (ALT/SGPT) 13, Alkaline Phosphatase 88, Pro-B-Type Natriuretic Peptide 70, Total Protein 7.2, Albumin 3.8, Globulin 3.4, Albumin/Globulin Ratio 1.1 Height (Feet): 5 Height (Inches): 4.00 Weight (Pounds): 200 EENT: PERRL/EOMI Neck: supple Cardiovascular: normal rate Respiratory/Chest: lungs clear Christopher Naranjo MD Jul 25, 2016 15:01
[2016-07-25] MEDS ORDERED: NORVASC10 MG ORAL (15:16)
[2016-07-25] MEDS ORDERED: TENORMIN50 MG ORAL (15:17)
[2016-07-25] MEDS ORDERED: ELIQUIS2.5 MG PO (15:18)
[2016-07-25] MEDS ORDERED: ASPIR 8181 MG ORAL (15:18)
[2016-07-25] MEDS ORDERED: AVAPRO150 MG ORAL (15:19)
[2016-07-25] MEDS ORDERED: LIPITOR40 MG ORAL (15:19)
--- NOTE | 2016-07-25 16:47 | General Progress Note ---
Assessment/Plan Assessment/Plan ASSESSMENT: #. Anemia 2/2 iron deficiency - ferritin is 15, tibc is elevated, began on ferrous sulfate/Vit C #. Decreased H/H rule out GI bleed #. Accelerated hypertension, well controlled. #. Atypical chest pain with no recurrence and no clinical signs of acute coronary insufficiency. #. Type 2 diabetes mellitus, stable. #. Coronary artery disease. #. History of coronary stent PLAN: 1. Anemia w/u has been reviewed, has anemia of iron deficiency --> started on iron supplementation --> consider Gi f/u 2. Monitor counts 3. Transfuse as needed, hgb goal >7 4. Appreciate nephro and cardio recs 5. Obtain peripheral smear 6. Hold off on epogen at the moment 7. DVT ppx with heparins sq 8. Appreciate consultation! Subjective Constitutional: Reports: no symptoms HEENT: Reports: no symptoms Cardiovascular: Reports: no symptoms Respiratory: Reports: no symptoms Gastrointestinal/Abdominal: Reports: no symptoms Genitourinary: Reports: no symptoms Neurologic/Psychiatric: Reports: no symptoms Endocrine: Reports: no symptoms Hematologic/Lymphatic: Reports: anemia Allergies: Coded Allergies: No Known Allergies (Unverified , 07/19/16) Subjective stable, no events overnight, no fevers or chills reported Objective Last 24 Hour Vital Signs Date Time Temp Pulse Resp B/P Pulse Ox O2 Delivery O2 Flow Rate FiO2 07/25/16 12:00 69 07/25/16 12:00 97.9 71 17 127/76 98 Room Air 07/25/16 08:50 90 147/84 07/25/16 08:50 147/84 07/25/16 08:49 147/84 07/25/16 08:49 90 147/84 07/25/16 08:00 88 07/25/16 08:00 96.8 90 18 147/84 94 Room Air 07/25/16 04:51 134/68 07/25/16 04:00 97.5 81 21 160/77 94 Room Air 07/25/16 04:00 82 07/25/16 00:00 81 07/25/16 00:00 97.9 82 21 127/68 95 Room Air 07/24/16 20:00 97.5 83 21 124/93 97 Room Air 07/24/16 20:00 78 Intake and Output 07/24/16 07/25/16 19:00 07:00 Intake Total 720 ml 150 ml Balance 720 ml 150 ml Intake Oral 720 ml 150 ml # Voids 3 1 # Bowel Movements 1 1 Laboratory Tests 07/24/16 23:00: Stool Occult Blood Positive 07/25/16 04:30: White Blood Count 10.1, Red Blood Count 3.74L, Hemoglobin 10.1L, Hematocrit 32.0L, Mean Corpuscular Volume 86, Mean Corpuscular Hemoglobin 26.9L, Mean Corpuscular Hemoglobin Concent 31.5L, Red Cell Distribution Width 15.0H, Platelet Count 329, Mean Platelet Volume 7.7, Neutrophils (%) (Auto) 60.0, Lymphocytes (%) (Auto) 28.4, Monocytes (%) (Auto) 8.5, Eosinophils (%) (Auto) 2.4, Basophils (%) (Auto) 0.7, Sodium Level 144, Potassium Level 3.7, Chloride Level 100, Carbon Dioxide Level 29, Anion Gap 15, Blood Urea Nitrogen 10, Creatinine 0.8, Estimat Glomerular Filtration Rate , Glucose Level 116H, Calcium Level 9.5, Magnesium Level 1.5L, Total Bilirubin 0.4, Aspartate Amino Transf (AST/SGOT) 18, Alanine Aminotransferase (ALT/SGPT) 13, Alkaline Phosphatase 88, Pro-B-Type Natriuretic Peptide 70, Total Protein 7.2, Albumin 3.8, Globulin 3.4, Albumin/Globulin Ratio 1.1 Height (Feet): 5 Height (Inches): 4.00 Weight (Pounds): 200 General Appearance: no apparent distress EENT: normal ENT inspection Neck: supple Cardiovascular: regular rhythm Respiratory/Chest: normal breath sounds Abdomen: no organomegaly Genitourinary/Rectal: normal rectal exam Extremities: normal inspection Edema: 1+ Leg (L), 1+ Leg (R) Edema: mild edema Neurologic: alert Skin: warm/dry Jose Mercado Jul 25, 2016 16:47
--- NOTE | 2016-07-26 01:58 | Progress Note ---
DATE: 07/25/2016 CARDIOLOGY PROGRESS NOTE SUBJECTIVE: The patient has no chest pain. No shortness of breath. OBJECTIVE: VITAL SIGNS: Her blood pressure control is still labile, but the overall range is adequate, blood pressure 127/76, 160/77, heart rate 69 to 90, respiratory rate 17 to 21, and she is afebrile. NECK: Supple. LUNGS: Clear. CARDIAC: Regular rhythm rate. Normal S1 and S2 with a fourth heart sound. ABDOMEN: Soft. EXTREMITIES: No edema. IMPRESSION: 1. Coronary artery disease with stable angina, status post coronary stent. 2. Hypertensive heart disease with improved blood pressure controlled. 3. Diastolic dysfunction with no signs of acute congestive heart failure. 4. History of atrial arrhythmias. 5. Hemoccult-positive stool with iron deficiency. PLAN: We will discontinue flecainide, has high risk for parole arrhythmia, in the setting of coronary disease. We will continue beta ibis. We will need outpatient GI workup. We will continue current cardiovascular regimen, otherwise without change including anti-platelet and lipid therapy. Jorge Chin M.D. DR: Joan JOB#: [id number] CC:
[2016-07-26] MEDS ORDERED: Ascorbic Acid 500mg tab ORAL SCH (09:00)
--- NOTE | 2016-07-26 14:26 | Discharge Summary ---
Discharge Summary Hospital Course Date of Admission Jul 19, 2016 at 19:29 Date of Discharge Jul 25, 2016 at 17:20 Admitting Diagnosis CHEST PAIN HPI Helen Cruz is a 76 year old female who was admitted on Jul 19, 2016 at 19:29 for Chest Pain Hospital Course dc summary # [id number] Discharge Medications Continued Medications: Amlodipine Besylate (Norvasc) 10 Mg Tablet 10 MG ORAL DAILY, TAB Aspirin* (Aspir 81*) 81 Mg Tablet.dr 81 MG ORAL DAILY, TAB Atenolol* (Tenormin*) 50 Mg Tablet 50 MG ORAL DAILY, TAB Atorvastatin Calcium* (Lipitor*) 40 Mg Tablet 40 MG ORAL DAILY, TAB Clonidine Hcl* (Catapres*) 0.1 Mg Tablet 0.1 MG ORAL EVERY 6 HOURS, TAB Clopidogrel* (Clopidogrel*) 75 Mg Tablet 75 MG ORAL DAILY, TAB Irbesartan* (Avapro*) 150 Mg Tablet 150 MG ORAL DAILY, TAB Metformin Hcl* (Metformin Hcl*) 500 Mg Tablet 500 MG ORAL TWICE A DAY, TAB Discontinued Medications: Atenolol* (Tenormin*) 25 Mg Tablet 25 MG ORAL DAILY, TAB Flecainide Acetate (Flecainide Acetate) 50 Mg Tablet 50 MG PO BID, TAB Rosuvastatin Calcium* (Crestor*) 10 Mg Tablet 10 MG ORAL DAILY, TAB Discharge Condition Upon Discharge: stable Discharge Disposition Patient was discharged to Home with Home [facility]() Discharge Diagnoses: Discharge Instructions Discharge Instructions Special Instructions I have been assigned to complete a D/C Summary on this account. I was not involved in the patient management Jennifer Breen NP ([facility]) Jul 26, 2016 14:26
--- NOTE | 2016-07-27 02:38 | Discharge Summary 2 SIG ---
DATE OF ADMISSION: 07/19/2016 DATE OF DISCHARGE: 07/25/2016 REASON FOR ADMISSION: 76-year-old female with history of hypertension; diabetes; hyperlipidemia; history of coronary artery disease, status post percutaneous coronary intervention; and ME, presented with substernal nonradiating chest pain for one night. She reported no associated shortness of breath. No fevers. No chills. No cough. At home, she took sublingual nitroglycerin with some relief and took another nitroglycerin on morning before coming to the emergency department. She was given additional nitroglycerin spray and aspirin by paramedics. She did not take any of her blood pressure medications prior to arrival to the emergency department. Workup in the emergency room revealed negative troponin EKG, showed normal sinus rhythm with heart rate of 75. No ischemic changes. No leukocytosis. Blood pressure was 214/141. The patient was given blood pressure medication along with Plavix in the emergency department. Additional nitroglycerin paste was provided. Chest x-ray revealed no acute cardiopulmonary pathology, but demonstrated left atelectasis. The patient was admitted for further management. ADMITTING DIAGNOSES: 1. Chest pain, rule out acute coronary syndrome. 2. Hypertensive urgency. 3. History of coronary artery disease, s/p percutaneous coronary intervention and ME. 4. Diabetes HOSPITAL STAY: The patient was admitted to telemetry floor. Cardiology consult was urgently requested along with Hematology and Nephrology consult. Serial troponin x2 were negative. EKG showed no ischemic changes; therefore, the patient was ruled out for acute ME. Per Fashion Photographer, chest pain atypical, likely due to accelerated hypertension. Blood pressure was managed with multiple regimen of antihypertensive medication. Antihypertensive regimen was titrated and adjusted, and blood pressure was controlled with last antihypertensive regimen. Lipid panel revealed elevated LDL of 116. The patient on statin, continued. Educated on low fat low cholesterol cardiac diabetic diet. Anemia workup revealed iron deficiency anemia. Stool for OB was positive. The patient started on iron supplement while in the hospital and recommended outpatient GI workup in lieu of positive stool OB as well as iron deficiency anemia. The patient had evidence of diastolic dysfunction, but no signs of acute congestive heart failure. Anti-failure medication regimen along with antihypertensive regimen were optimized. No need for diuresis at this point. No evidence of acute congestive heart failure, as per cheese factory worker. Per Cardiology, defer stress test until all comorbidities optimized. DVT prophylaxis was provided. Venous duplex of bilateral lower extremities was negative. Hemoglobin A1c - 6.8. Blood sugar was managed with current regimen and was stable. Urinalysis with + 2 protein. Kick Boxer followed. Microalbumin to creatinine ratio elevated. Advised to avoid NSAIDs and follow up with harness installer as outpatient. The patient was stable for discharge. DISCHARGE DIAGNOSES: I 1. Atypical chest pain likely secondary to accelerated hypertension. 2. Hypertensive urgency, -resolved. 3. History of coronary artery disease with percutaneous coronary intervention and history of myocardial infarction. 4. Hyperlipidemia. 5. Diabetes mellitus. 6. Hypertensive heart disease with hypertensive urgency. 7. Iron deficiency anemia with positive stool occult blood. 8. Diastolic dysfunction. 9. Diabetic nephropathy DISCHARGE MEDICATIONS: See medication reconciliation list. DISCHARGE INSTRUCTIONS: The patient was discharged home with home health. FOLLOWUP: The patient is to follow up with the primary medical doctor. Christopher Naranjo M.D. I have been assigned to dictate discharge summary on this account and I was not involved in the patient's management. Jennifer Breen ([facility]) N.P. DR: ARMAAN JOB#: [id number] CC: RACHID
== END 2016-07-25 17:20 | disposition home health service (06) | DRG 305 ==
LOC: EDBD 16:01 → EMR 19:25 → 2E 19:29 → EDBEDREQ 20:42
DX: I16.0 Hypertensive urgency (principal); I11.9 Hypertensive heart disease without heart failure; E11.319 Type 2 diabetes mellitus with unspecified diabetic retinopathy without macular edema; E78.5 Hyperlipidemia, unspecified; D50.9 Iron deficiency anemia, unspecified; R07.89 Other chest pain; E87.6 Hypokalemia; Z95.5 Presence of coronary angioplasty implant and graft; I25.10 Atherosclerotic heart disease of native coronary artery without angina pectoris; Z98.61 Coronary angioplasty status; I25.2 Old myocardial infarction; Z79.02 Long term (current) use of antithrombotics/antiplatelets; E66.9 Obesity, unspecified
CPT/HCPCS: 36415; 71010; 80053; 80061; 81001; 82043; 82044; 82270; 82550; 82553; 82570; 82728; 82746; 82962; 83010; 83036; 83540; 83550; 83735; 83880; 84300; 84484; 85025; 85044; 85384; 86703; 89050; 93005; 93970; J1815

== ENCOUNTER 2018-09-17 14:52 | Inpatient (IN) | payer MEDICARE, OTHER ==
[~2018-09-17] VITALS: Ht 157.5 cm; Wt 88.0 kg
[2018-09-17] VITALS (7 sets, daily range): BP systolic 155–202; BP diastolic 68–101
[~2018-09-17 14:52] MED LIST: ASPIR 8181 MG ORAL; ATENOLOL25 MG ORAL; AVAPRO150 MG ORAL; CATAPRES0.1 MG ORAL; CLOPIDOGREL75 MG ORAL; CRESTOR10 M2 ORAL; ELIQUIS2.5 MG PO; FLECAINIDE ACE100 MG ORAL; FLECAINIDE ACET50 M1 PO; LIPITOR40 MG ORAL; METFORMIN HCL500 M1 ORAL; NORVASC10 MG ORAL; TENORMIN50 MG ORAL
--- NOTE | 2018-09-17 15:00 | Emergency Room Report ---
History of Present Illness General Chief Complaint: Palpitations Source: Patient, EMS Present Illness HPI Patient presents with palpitations. She recently underwent ablation at [facility] at the beginning of the month. Paramedics were summoned. They report that she had atrial fibrillation. She denies any chest pain. She does feel dizziness and weakness when she stands. She denies any vomiting, diarrhea dysuria a fevers or productive cough sore throat. Patient is poorly tolerating Plavix. She denies palpitations at this time. No fevers, chills, nausea, vomiting, diarrhea, dysuria, abdominal pain, shortness of breath, depression, visual changes, headache. She does feel anxious. Allergies: Coded Allergies: IODINE (Unverified Allergy, Unknown, 09/17/18) Patient History Past Medical History: see triage record Past Surgical History: PTCA, other - Cardiac ablation Social History: Denies: smoking - Former Social History Narrative from home Reviewed Nursing Documentation: PMH: Agreed; PSxH: Agreed Nursing Documentation-PMH Hx Cardiac Problems: Yes - CHF Hx Hypertension: Yes Hx Diabetes: Yes Hx Cancer: No Hx Gastrointestinal Problems: No Hx Neurological Problems: No Review of Systems All Other Systems: negative except mentioned in HPI Physical Exam Vital Signs Date Time Temp Pulse Resp B/P (MAP) Pulse Ox O2 Delivery O2 Flow Rate FiO2 09/17/18 14:40 98.1 86 16 216/127 (156) 100 Room Air Sp02 EP Interpretation: reviewed, normal General Appearance: well appearing, no apparent distress, GCS 15 Head: normocephalic, atraumatic Eyes: bilateral eye normal inspection, bilateral eye PERRL, bilateral eye EOMI ENT: moist mucus membranes Neck: supple Respiratory: lungs clear, normal breath sounds Cardiovascular #1: regular rate, rhythm, no edema Cardiovascular #2: 2+ radial (R) Gastrointestinal: normal inspection, normal bowel sounds, non tender, no mass, non-distended Genitourinary: no CVA tenderness Musculoskeletal: back normal, normal range of motion, no calf tenderness, Lauren 's Sign negative Neurologic: alert, oriented x3, grossly normal Psychiatric: anxious Skin: normal inspection, warm/dry Medical Decision Making Diagnostic Impression: Primary Impression: Palpitations Additional Impressions: Hypertensive urgency Elevated troponin UTI (urinary tract infection) Qualified Codes: N39.0 - Urinary tract infection, site not specified ER Course Patient presents with palpitations and weakness after ablation. Differential includes acute myocardial infarction, arrhythmia, find depletion, electrolyte imbalance amongst others. She'll be evaluated with EKG, chest x-ray and labs. The patient will receive gentle IV hydration at this time. 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 Patient's blood pressure is extremely elevated. I will be treating this. She's on Catapres and will be given a dose orally. EKG was sinus rhythm rate 78 left atrial enlargement left ventricular hypertrophy inferior are infarct age unknown and inferior lateral ST inversions suggesting ischemia. Chest x-ray without infiltrate but atelectasis on the left. Slightly elevated blood glucose, low potassium. Pyuria present. Called with + troponin. Aspirin, nitro bid and metoprolol ordered 16:08 Anxious. BP still high. Catapres repeat and Ativan given. Potassium low and given orally. Rocephin given Blood pressure improving. Patient still denies chest pain. Discussed results with patient. She is concerned about possible catheterization. Admit to stepdown unit Dr. Harrison. Laboratory Tests Test 09/17/18 15:05 09/17/18 15:33 09/17/18 20:20 White Blood Count 8.3 K/UL (4.8-10.8) Red Blood Count 4.42 M/UL (4.20-5.40) Hemoglobin 11.3 G/DL (12.0-16.0) L Hematocrit 35.7 % (37.0-47.0) L Mean Corpuscular Volume 81 FL (80-99) Mean Corpuscular Hemoglobin 25.5 PG (27.0-31.0) L Mean Corpuscular Hemoglobin Concent 31.6 G/DL (32.0-36.0) L Red Cell Distribution Width 21.3 % (11.6-14.8) H Platelet Count 268 K/UL (150-450) Mean Platelet Volume 6.4 FL (6.5-10.1) L Neutrophils (%) (Auto) 78.7 % (45.0-75.0) H Lymphocytes (%) (Auto) 13.8 % (20.0-45.0) L Monocytes (%) (Auto) 5.4 % (1.0-10.0) Eosinophils (%) (Auto) 1.4 % (0.0-3.0) Basophils (%) (Auto) 0.7 % (0.0-2.0) Prothrombin Time 10.9 SEC (9.30-11.50) Prothrombin Time INR 1.0 (0.9-1.1) PTT 29 SEC (23-33) Sodium Level 143 MMOL/L (136-145) Potassium Level 3.3 MMOL/L (3.5-5.1) L Chloride Level 105 MMOL/L (98-107) Carbon Dioxide Level 31 MMOL/L (21-32) Anion Gap 7 mmol/L (5-15) Blood Urea Nitrogen 10 mg/dL (7-18) Creatinine 0.9 MG/DL (0.55-1.30) Estimate Glomerular Filtration Rate mL/min (>60) Glucose Level 221 MG/DL (74-106) H Calcium Level 9.7 MG/DL (8.5-10.1) Total Bilirubin 0.6 MG/DL (0.2-1.0) Aspartate Amino Transferase (AST) 13 U/L (15-37) L Alanine Aminotransferase (ALT) 16 U/L (12-78) Alkaline Phosphatase 93 U/L (46-116) Total Creatine Kinase 60 U/L (26-308) Troponin I 0.586 ng/mL (0.000-0.056) 0.591 ng/mL (0.000-0.056) Pro-B-Type Natriuretic Peptide 2173 pg/mL (0-125) H Total Protein 7.6 G/DL (6.4-8.2) Albumin 3.3 G/DL (3.4-5.0) L Globulin 4.3 g/dL Albumin/Globulin Ratio 0.8 (1.0-2.7) L Lipase 66 U/L (73-393) L Digoxin Level < 0.2 NG/ML (0.9-2.0) L Urine Color Pale yellow Urine Appearance Clear Urine pH 7 (4.5-8.0) Urine Specific [place] 1.005 (1.005-1.035) Urine Protein 1+ (NEGATIVE) H Urine Glucose (UA) Negative (NEGATIVE) Urine Ketones Negative (NEGATIVE) Urine Blood 2+ (NEGATIVE) H Urine Nitrite Negative (NEGATIVE) Urine Bilirubin Negative (NEGATIVE) Urine Urobilinogen Normal MG/DL (0.0-1.0) Urine Leukocyte Esterase 2+ (NEGATIVE) H Urine RBC 2-4 /HPF (0 - 2) H Urine WBC 5-10 /HPF (0 - 2) H Urine Squamous Epithelial Cells Few /LPF (NONE/OCC) Urine Bacteria Few /HPF (NONE) Urine Opiates Screen Negative (NEGATIVE) Urine Barbiturates Screen Negative (NEGATIVE) Phencyclidine (PCP) Screen Negative (NEGATIVE) Urine Amphetamines Screen Negative (NEGATIVE) Urine Benzodiazepines Screen Negative (NEGATIVE) Urine Cocaine Screen Negative (NEGATIVE) Urine Marijuana (THC) Screen Negative (NEGATIVE) EKG Diagnostic Results Rate: normal Rhythm: NSR ST Segments: no acute changes - Left atrial enlargement, left ventricular hypertrop ischemic T-wave inversions infero laterally Rhythm Strip Diag. Results EP Interpretation: yes Rhythm: NSR, no PVC's, no ectopy Chest X-Ray Diagnostic Results Chest X-Ray Diagnostic Results : Chest X-Ray Ordered: Yes # of Views/Limited/Complete: 1 View Indication: Other EP Interpretation: Yes Interpretation: no effusion, no pneumothorax, other - atelectasis Impression: Other Electronically Signed by: Electronically signed by Jorge Valladares MD Last Vital Signs Date Time Temp Pulse Resp B/P (MAP) Pulse Ox O2 Delivery O2 Flow Rate FiO2 09/18/18 00:37 65 09/18/18 00:00 97.5 16 159/63 (95) 94 09/18/18 00:00 Room Air Status: improved Disposition: ADMITTED INPATIENT Condition: Serious Jorge Valladares MD Sep 17, 2018 15:00
[2018-09-17] MEDS: Sodium Chloride 550 ML IV SCH ×3 (15:10→22:00)
--- NOTE | 2018-09-17 15:15 | NUR ---
ED Nurse Note: Pt BIBA from home due to palpitation since 08/23/18 from [facility], pt was there for Ablation Heart procedure. Since the discharge, pt has been feeling symptoms. BP upon arrival 202/68, HR 76. AOx4 at this time. Will cont to monitor.
--- NOTE | 2018-09-17 15:28 | NUR ---
ED Nurse Note: Blood and urine collected and sent to lab.
[2018-09-17 15:39] LABS: BASOPHILS % (AUTO) 0.7 % (0.0-2.0); EOSINOPHILS % (AUTO) 1.4 % (0.0-3.0); HEMATOCRIT 35.7 % (37.0-47.0); HEMOGLOBIN 11.3 G/DL (12.0-16.0); LYMPHOCYTES % (AUTO) 13.8 % (20.0-45.0); MEAN CORPUSCULAR VOLUME 81 FL (80-99); MONOCYTES % (AUTO) 5.4 % (1.0-10.0); NEUTROPHILS % (AUTO) 78.7 % (45.0-75.0); PLATELET COUNT 268 K/UL (150-450); RED BLOOD COUNT 4.42 M/UL (4.20-5.40); RED CELL DISTRIBUTION WIDTH 21.3 % (11.6-14.8); WHITE BLOOD COUNT 8.3 K/UL (4.8-10.8)
[2018-09-17 15:44] LABS: ANION GAP 7 mmol/L (5-15); BLOOD UREA NITROGEN 10 mg/dL (7-18); CALCIUM 9.7 MG/DL (8.5-10.1); CARBON DIOXIDE 31 MMOL/L (21-32); CHLORIDE 105 MMOL/L (98-107); CREATININE 0.9 MG/DL (0.55-1.30); POTASSIUM 3.3 MMOL/L (3.5-5.1); SODIUM 143 MMOL/L (136-145)
[2018-09-17 15:46] LABS: APPEARANCE,URINE CLEAR; BILIRUBIN, URINE NEGATIVE (NEGATIVE); COLOR,URINE PALE YELLOW; GLUCOSE, URINE (UA) NEGATIVE (NEGATIVE); KETONES,URINE NEGATIVE (NEGATIVE); LEUKOCYTE ESTERASE ,URINE 2+ (NEGATIVE); NITRITE,URINE NEGATIVE (NEGATIVE); PH,URINE 7 (4.5-8.0); PROTEIN,URINE 1+ (NEGATIVE); UROBILINOGEN,URINE NORMAL MG/DL (0.0-1.0)
[2018-09-17 15:55] LABS: ALANINE AMINOTRANSFERASE 16 U/L (12-78); ALBUMIN 3.3 G/DL (3.4-5.0); ALBUMIN/GLOBULIN RATIO 0.8 (1.0-2.7); ALKALINE PHOSPHATASE 93 U/L (46-116); ASPARTATE AMINO TRANSFERASE 13 U/L (15-37); BILIRUBIN,TOTAL 0.6 MG/DL (0.2-1.0); CREATINE KINASE 60 U/L (26-308)
[2018-09-17] MEDS ORDERED: Nitroglycerin 2% oint pkt TOPIC ONE (16:15)
[2018-09-17] MEDS ORDERED: cefTRIAXone 1 GM in NS 55 ML IVPB ONE (16:15)
[2018-09-17] MEDS: Metoprolol 5mg/5ml Inj IVP SCH ×3 (16:34→16:53)
--- NOTE | 2018-09-17 16:55 | Diagnostic Imaging Report ---
Indication: Chest pain Comparison: 07/19/2016 A single view chest radiograph was obtained. Findings: Pulmonary vascular congestion noted. The heart is borderline enlarged. Bones are slightly osteopenic. Aorta is calcified. IMPRESSION: Mild pulmonary vascular congestion suspected
[2018-09-17] MEDS ORDERED: LORazepam Inj 2mg/ml 1ml IM ONE (17:45)
[2018-09-17] MEDS ORDERED: Albuterol/Ipratropium 3ml neb HHN PRN (18:44)
[2018-09-17] MEDS ORDERED: Miralax 17gm pkt ORAL PRN (18:47)
[2018-09-17] MEDS ORDERED: dilTIAZem HCl 25mg/5ml Inj IV PRN (19:18)
--- NOTE | 2018-09-17 19:18 | NUR ---
HAND-OFF: Report given to YOLANDE Hill.
--- NOTE | 2018-09-17 19:45 | NUR ---
ER Nurse Note: Pt a&ox4, VSS except BP; BP 169/88, MD aware, no signs of external distress. SLIV RT AC; patent. Skin intact. All belongings accounted; awaiting bed and report. Pt refused CRE, VRE swabs; was able to obtain MRSA swab. Will continue to [facility].
--- NOTE | 2018-09-17 20:23 | NUR ---
ER Nurse Note: Called to give report; CN stated to call back in 5 mins. Pt is not assigned primary RN.
--- NOTE | 2018-09-17 20:43 | NUR ---
ER Nurse Note: Report given to YOLANDE Omer in SDU for continuity of care. Pt a&ox4,VSS, pt stable for transfer. All belongings taken.
--- NOTE | 2018-09-17 20:44 | NUR ---
NURSE NOTES: Received a report from YOLANDE Hill.Patient stable,A&O x4,SR on rn cardiac,tolerated r/air well,lungs clear on auscultation,BS active in all quadrants,skin intact,IV asymptomatic,intact on R AC G 20 SL,pt refused VRE,CRE swabs,no c/o pain,no respiratory distress noted,ambulatory stable with assistance,belongings list signed,bed secured,call light within a reach,will continue to monitor.
[2018-09-17] MEDS: Heparin 5000 units/ml inj SUBQ SCH (22:01)
[2018-09-18] VITALS (8 sets, daily range): BP systolic 155–176; BP diastolic 63–94
[2018-09-18] MEDS: Sodium Chloride 550 ML IV SCH ×2 (01:54→05:04)
[2018-09-18] MEDS: Labetalol 5mg/ml 20ml vial IV PRN ×5 (05:05→23:53)
--- NOTE | 2018-09-18 05:05 | NUR ---
NURSE NOTES: Adm. Labetalol 4 ml,B/P 162/75 Patient stable,no c/o dizziness,or headache.
[2018-09-18 05:16] LABS: BASOPHILS % (AUTO) 0.6 % (0.0-2.0); HEMATOCRIT 32.3 % (37.0-47.0); HEMOGLOBIN 10.1 G/DL (12.0-16.0); LYMPHOCYTES % (AUTO) 28.7 % (20.0-45.0); MEAN CORPUSCULAR VOLUME 83 FL (80-99); MONOCYTES % (AUTO) 9.3 % (1.0-10.0); NEUTROPHILS % (AUTO) 59.5 % (45.0-75.0); PLATELET COUNT 242 K/UL (150-450); RED BLOOD COUNT 3.91 M/UL (4.20-5.40); RED CELL DISTRIBUTION WIDTH 22.5 % (11.6-14.8); WHITE BLOOD COUNT 6.8 K/UL (4.8-10.8)
[2018-09-18 05:44] LABS: CHOLESTEROL 146 MG/DL (< 200); HDL CHOLESTEROL 34 MG/DL (40-60); INR 1.1 (0.9-1.1); TRIGLYCERIDES 108 MG/DL (30-150)
--- NOTE | 2018-09-18 05:55 | NUR ---
NURSE NOTES: Received a call from [facility],lab Troponin trending down 0.540
--- NOTE | 2018-09-18 07:11 | NUR ---
HAND-OFF: Report given to YOLANDE Krishna.Patient stable,sleeping.
--- NOTE | 2018-09-18 07:12 | NUR ---
NURSE NOTES: received patient report from miguel [facility]. patient is awake, on breathing treatment. bed is low and locked for safety. will follow plan of care, Addendum: 09/18/18 at 0727 by AZEB ARANDA RN wrong entry. pls disregard note above.
--- NOTE | 2018-09-18 07:27 | NUR ---
NURSE NOTES: received patient report from miguel grove. patient is on bed asleep. not in acute distress. will follow plan of care.
[2018-09-18] MEDS: Heparin 5000 units/ml inj SUBQ SCH ×2 (08:14→21:02)
--- NOTE | 2018-09-18 10:29 | Cardiac Electrophysiology PN ---
Subjective Subjective Patient well known to me. 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 Also had acute VT 08/2018 at [facility] and had RCA stent.Dictated [id number] DW Dr Harrison Objective Last 24 Hour Vital Signs Date Time Temp Pulse Resp B/P (MAP) Pulse Ox O2 Delivery O2 Flow Rate FiO2 09/18/18 08:13 86 157/78 09/18/18 08:13 86 157/78 09/18/18 08:00 97.3 86 21 157/78 (104) 95 09/18/18 08:00 Room Air 09/18/18 07:18 78 17 92 Room Air 21 09/18/18 05:05 65 162/75 09/18/18 04:00 Room Air 09/18/18 04:00 97.2 65 20 162/75 (104) 96 09/18/18 03:56 67 09/18/18 00:37 65 09/18/18 00:00 97.5 70 16 159/63 (95) 94 09/18/18 00:00 Room Air 09/17/18 22:24 71 09/17/18 21:00 Room Air 09/17/18 21:00 97.9 70 18 174/91 (118) 96 09/17/18 20:50 98.1 69 18 155/82 99 Room Air 09/17/18 20:50 98.1 67 18 168/88 99 Room Air 09/17/18 19:44 98.1 67 18 168/88 99 Room Air 09/17/18 18:38 98.1 78 20 174/85 100 Room Air 09/17/18 18:08 180/76 09/17/18 17:41 98.1 75 20 185/98 100 Room Air 09/17/18 16:53 80 178/151 09/17/18 16:45 98.1 82 19 192/101 100 Room Air 09/17/18 16:42 78 186/90 09/17/18 16:34 74 195/93 09/17/18 16:34 195/93 09/17/18 15:13 98.1 76 20 202/68 100 Room Air 09/17/18 15:09 202/68 09/17/18 14:40 98.1 86 16 216/127 (156) 100 Room Air Intake and Output 09/17/18 09/18/18 19:00 07:00 Intake Total 355 ml 1300 ml Output Total 1200 ml Balance 355 ml 100 ml Intake Oral 400 ml IV Total 355 ml 900 ml Output Urine Total 1200 ml # Voids 2 Laboratory Tests Test 09/17/18 15:05 09/17/18 15:33 09/17/18 20:20 09/18/18 03:45 White Blood Count 8.3 K/UL (4.8-10.8) 6.8 K/UL (4.8-10.8) Red Blood Count 4.42 M/UL (4.20-5.40) 3.91 M/UL (4.20-5.40) L Hemoglobin 11.3 G/DL (12.0-16.0) L 10.1 G/DL (12.0-16.0) L Hematocrit 35.7 % (37.0-47.0) L 32.3 % (37.0-47.0) L Mean Corpuscular Volume 81 FL (80-99) 83 FL (80-99) Mean Corpuscular Hemoglobin 25.5 PG (27.0-31.0) L 25.8 PG (27.0-31.0) L Mean Corpuscular Hemoglobin Concent 31.6 G/DL (32.0-36.0) L 31.2 G/DL (32.0-36.0) L Red Cell Distribution Width 21.3 % (11.6-14.8) H 22.5 % (11.6-14.8) H Platelet Count 268 K/UL (150-450) 242 K/UL (150-450) Mean Platelet Volume 6.4 FL (6.5-10.1) L 7.4 FL (6.5-10.1) Neutrophils (%) (Auto) 78.7 % (45.0-75.0) H 59.5 % (45.0-75.0) Lymphocytes (%) (Auto) 13.8 % (20.0-45.0) L 28.7 % (20.0-45.0) Monocytes (%) (Auto) 5.4 % (1.0-10.0) 9.3 % (1.0-10.0) Eosinophils (%) (Auto) 1.4 % (0.0-3.0) 2.0 % (0.0-3.0) Basophils (%) (Auto) 0.7 % (0.0-2.0) 0.6 % (0.0-2.0) Prothrombin Time 10.9 SEC (9.30-11.50) 11.3 SEC (9.30-11.50) Prothromb Time International Ratio 1.0 (0.9-1.1) 1.1 (0.9-1.1) Activated Partial Thromboplast Time 29 SEC (23-33) 29 SEC (23-33) Sodium Level 143 MMOL/L (136-145) Potassium Level 3.3 MMOL/L (3.5-5.1) L Chloride Level 105 MMOL/L (98-107) Carbon Dioxide Level 31 MMOL/L (21-32) Anion Gap 7 mmol/L (5-15) Blood Urea Nitrogen 10 mg/dL (7-18) Creatinine 0.9 MG/DL (0.55-1.30) Estimat Glomerular Filtration Rate mL/min (>60) Glucose Level 221 MG/DL (74-106) H Calcium Level 9.7 MG/DL (8.5-10.1) Total Bilirubin 0.6 MG/DL (0.2-1.0) Aspartate Amino Transf (AST/SGOT) 13 U/L (15-37) L Alanine Aminotransferase (ALT/SGPT) 16 U/L (12-78) Alkaline Phosphatase 93 U/L (46-116) Total Creatine Kinase 60 U/L (26-308) Troponin I 0.586 ng/mL (0.000-0.056) 0.591 ng/mL (0.000-0.056) 0.540 ng/mL (0.000-0.056) Pro-B-Type Natriuretic Peptide 2173 pg/mL (0-125) H Total Protein 7.6 G/DL (6.4-8.2) Albumin 3.3 G/DL (3.4-5.0) L Globulin 4.3 g/dL Albumin/Globulin Ratio 0.8 (1.0-2.7) L Lipase 66 U/L (73-393) L Digoxin Level < 0.2 NG/ML (0.9-2.0) L Urine Color Pale yellow Urine Appearance Clear Urine pH 7 (4.5-8.0) Urine Specific [place] 1.005 (1.005-1.035) Urine Protein 1+ (NEGATIVE) H Urine Glucose (UA) Negative (NEGATIVE) Urine Ketones Negative (NEGATIVE) Urine Blood 2+ (NEGATIVE) H Urine Nitrite Negative (NEGATIVE) Urine Bilirubin Negative (NEGATIVE) Urine Urobilinogen Normal MG/DL (0.0-1.0) Urine Leukocyte Esterase 2+ (NEGATIVE) H Urine RBC 2-4 /HPF (0 - 2) H Urine WBC 5-10 /HPF (0 - 2) H Urine Squamous Epithelial Cells Few /LPF (NONE/OCC) Urine Bacteria Few /HPF (NONE) Urine Opiates Screen Negative (NEGATIVE) Urine Barbiturates Screen Negative (NEGATIVE) Phencyclidine (PCP) Screen Negative (NEGATIVE) Urine Amphetamines Screen Negative (NEGATIVE) Urine Benzodiazepines Screen Negative (NEGATIVE) Urine Cocaine Screen Negative (NEGATIVE) Urine Marijuana (THC) Screen Negative (NEGATIVE) C-Reactive Protein, Quantitative 0.5 mg/dL (0.00-0.90) Triglycerides Level 108 MG/DL (30-150) Cholesterol Level 146 MG/DL (< 200) LDL Cholesterol 94 mg/dL (<100) HDL Cholesterol 34 MG/DL (40-60) L Cholesterol/HDL Ratio 4.3 (3.3-4.4) Thyroid Stimulating Hormone (TSH) 1.459 uiU/mL (0.358-3.740) Praveen Lambert MD Sep 18, 2018 10:29
--- NOTE | 2018-09-18 11:42 | Consultation ---
History of Present Illness General Date patient seen: Sep 18, 2018 Chief Complaint: Palpitations Present Illness HPI 78-year-old female with a history of hypertension; diabetes; hyperlipidemia; history of coronary artery disease, status post percutaneous coronary intervention; and DE, presented episode of palpitation. She had recently had an ablation in [facility]. She reported no associated shortness of breath. No fevers. No chills. No cough. Her troponin was positive and she is admitted to [facility] for further work up. Allergies: Coded Allergies: IODINE (Unverified Allergy, Unknown, 09/17/18) Medication History Scheduled Amlodipine Besylate (Norvasc), 10 MG ORAL DAILY, (Reported) Aspirin* (Aspir 81*), 81 MG ORAL DAILY, (Reported) Atenolol* (Tenormin*), 50 MG ORAL DAILY, (Reported) Atorvastatin Calcium* (Lipitor*), 40 MG ORAL DAILY, (Reported) Clonidine Hcl* (Catapres*), 0.1 MG ORAL EVERY 6 HOURS, (Reported) Clopidogrel* (Clopidogrel*), 75 MG ORAL DAILY, (Reported) Irbesartan* (Avapro*), 150 MG ORAL DAILY, (Reported) Metformin Hcl* (Metformin Hcl*), 500 MG ORAL TWICE A DAY, (Reported) Patient History Healthcare decision maker patient Resuscitation status Full Code Advanced Directive on File No Past Medical/Surgical History Past Medical/Surgical History: (1) S/P ablation of atrial fibrillation (2) Atrial fibrillation (3) Diabetes mellitus Review of Systems All Other Systems: negative except mentioned in HPI Physical Exam General Appearance: WD/WN Lines, tubes and drains: peripheral HEENT: normocephalic, atraumatic Neck: non-tender, normal alignment Respiratory/Chest: chest wall non-tender, normal breath sounds Cardiovascular/Chest: normal peripheral pulses, normal rate Abdomen: normal bowel sounds, non tender Genitourinary/Rectal: normal genital exam Extremities: normal range of motion Last 24 Hour Vital Signs Date Time Temp Pulse Resp B/P (MAP) Pulse Ox O2 Delivery O2 Flow Rate FiO2 09/18/18 08:13 86 157/78 09/18/18 08:13 86 157/78 09/18/18 08:00 97.3 86 21 157/78 (104) 95 09/18/18 08:00 85 09/18/18 08:00 Room Air 09/18/18 07:18 78 17 92 Room Air 21 09/18/18 05:05 65 162/75 09/18/18 04:00 Room Air 09/18/18 04:00 97.2 65 20 162/75 (104) 96 09/18/18 03:56 67 09/18/18 00:37 65 09/18/18 00:00 97.5 70 16 159/63 (95) 94 09/18/18 00:00 Room Air 09/17/18 22:24 71 09/17/18 21:00 Room Air 09/17/18 21:00 97.9 70 18 174/91 (118) 96 09/17/18 20:50 98.1 69 18 155/82 99 Room Air 09/17/18 20:50 98.1 67 18 168/88 99 Room Air 09/17/18 19:44 98.1 67 18 168/88 99 Room Air 09/17/18 18:38 98.1 78 20 174/85 100 Room Air 09/17/18 18:08 180/76 09/17/18 17:41 98.1 75 20 185/98 100 Room Air 09/17/18 16:53 80 178/151 09/17/18 16:45 98.1 82 19 192/101 100 Room Air 09/17/18 16:42 78 186/90 09/17/18 16:34 74 195/93 09/17/18 16:34 195/93 09/17/18 15:13 98.1 76 20 202/68 100 Room Air 09/17/18 15:09 202/68 09/17/18 14:40 98.1 86 16 216/127 (156) 100 Room Air Intake and Output 09/17/18 09/18/18 19:00 07:00 Intake Total 355 ml 1300 ml Output Total 1200 ml Balance 355 ml 100 ml Intake Oral 400 ml IV Total 355 ml 900 ml Output Urine Total 1200 ml # Voids 2 Laboratory Tests Test 09/17/18 15:05 09/17/18 15:33 09/17/18 20:20 09/18/18 03:45 White Blood Count 8.3 K/UL (4.8-10.8) 6.8 K/UL (4.8-10.8) Red Blood Count 4.42 M/UL (4.20-5.40) 3.91 M/UL (4.20-5.40) L Hemoglobin 11.3 G/DL (12.0-16.0) L 10.1 G/DL (12.0-16.0) L Hematocrit 35.7 % (37.0-47.0) L 32.3 % (37.0-47.0) L Mean Corpuscular Volume 81 FL (80-99) 83 FL (80-99) Mean Corpuscular Hemoglobin 25.5 PG (27.0-31.0) L 25.8 PG (27.0-31.0) L Mean Corpuscular Hemoglobin Concent 31.6 G/DL (32.0-36.0) L 31.2 G/DL (32.0-36.0) L Red Cell Distribution Width 21.3 % (11.6-14.8) H 22.5 % (11.6-14.8) H Platelet Count 268 K/UL (150-450) 242 K/UL (150-450) Mean Platelet Volume 6.4 FL (6.5-10.1) L 7.4 FL (6.5-10.1) Neutrophils (%) (Auto) 78.7 % (45.0-75.0) H 59.5 % (45.0-75.0) Lymphocytes (%) (Auto) 13.8 % (20.0-45.0) L 28.7 % (20.0-45.0) Monocytes (%) (Auto) 5.4 % (1.0-10.0) 9.3 % (1.0-10.0) Eosinophils (%) (Auto) 1.4 % (0.0-3.0) 2.0 % (0.0-3.0) Basophils (%) (Auto) 0.7 % (0.0-2.0) 0.6 % (0.0-2.0) Prothrombin Time 10.9 SEC (9.30-11.50) 11.3 SEC (9.30-11.50) Prothromb Time International Ratio 1.0 (0.9-1.1) 1.1 (0.9-1.1) Activated Partial Thromboplast Time 29 SEC (23-33) 29 SEC (23-33) Sodium Level 143 MMOL/L (136-145) Potassium Level 3.3 MMOL/L (3.5-5.1) L Chloride Level 105 MMOL/L (98-107) Carbon Dioxide Level 31 MMOL/L (21-32) Anion Gap 7 mmol/L (5-15) Blood Urea Nitrogen 10 mg/dL (7-18) Creatinine 0.9 MG/DL (0.55-1.30) Estimat Glomerular Filtration Rate mL/min (>60) Glucose Level 221 MG/DL (74-106) H Calcium Level 9.7 MG/DL (8.5-10.1) Total Bilirubin 0.6 MG/DL (0.2-1.0) Aspartate Amino Transf (AST/SGOT) 13 U/L (15-37) L Alanine Aminotransferase (ALT/SGPT) 16 U/L (12-78) Alkaline Phosphatase 93 U/L (46-116) Total Creatine Kinase 60 U/L (26-308) Troponin I 0.586 ng/mL (0.000-0.056) 0.591 ng/mL (0.000-0.056) 0.540 ng/mL (0.000-0.056) Pro-B-Type Natriuretic Peptide 2173 pg/mL (0-125) H Total Protein 7.6 G/DL (6.4-8.2) Albumin 3.3 G/DL (3.4-5.0) L Globulin 4.3 g/dL Albumin/Globulin Ratio 0.8 (1.0-2.7) L Lipase 66 U/L (73-393) L Digoxin Level < 0.2 NG/ML (0.9-2.0) L Urine Color Pale yellow Urine Appearance Clear Urine pH 7 (4.5-8.0) Urine Specific [place] 1.005 (1.005-1.035) Urine Protein 1+ (NEGATIVE) H Urine Glucose (UA) Negative (NEGATIVE) Urine Ketones Negative (NEGATIVE) Urine Blood 2+ (NEGATIVE) H Urine Nitrite Negative (NEGATIVE) Urine Bilirubin Negative (NEGATIVE) Urine Urobilinogen Normal MG/DL (0.0-1.0) Urine Leukocyte Esterase 2+ (NEGATIVE) H Urine RBC 2-4 /HPF (0 - 2) H Urine WBC 5-10 /HPF (0 - 2) H Urine Squamous Epithelial Cells Few /LPF (NONE/OCC) Urine Bacteria Few /HPF (NONE) Urine Opiates Screen Negative (NEGATIVE) Urine Barbiturates Screen Negative (NEGATIVE) Phencyclidine (PCP) Screen Negative (NEGATIVE) Urine Amphetamines Screen Negative (NEGATIVE) Urine Benzodiazepines Screen Negative (NEGATIVE) Urine Cocaine Screen Negative (NEGATIVE) Urine Marijuana (THC) Screen Negative (NEGATIVE) C-Reactive Protein, Quantitative 0.5 mg/dL (0.00-0.90) Triglycerides Level 108 MG/DL (30-150) Cholesterol Level 146 MG/DL (< 200) LDL Cholesterol 94 mg/dL (<100) HDL Cholesterol 34 MG/DL (40-60) L Cholesterol/HDL Ratio 4.3 (3.3-4.4) Thyroid Stimulating Hormone (TSH) 1.459 uiU/mL (0.358-3.740) Height (Feet): 5 Height (Inches): 2.00 Weight (Pounds): 194 Medications Current Medications Medications (Trade) Dose Ordered Sig/Ashly Route PRN Reason Start Time Stop Time Status Last Admin Dose Admin Acetaminophen (Tylenol) 650 mg Q4H PRN ORAL FEVER 09/17/18 18:44 10/17/18 18:43 Albuterol/ Ipratropium (Albuterol/ Ipratropium) 3 ml Q4H PRN HHN Shortness of Breath 09/17/18 18:44 09/22/18 18:43 Amlodipine Besylate (Norvasc) 10 mg DAILY ORAL 09/18/18 09:00 10/18/18 08:59 09/18/18 08:13 Aspirin (Ecotrin) 81 mg DAILY ORAL 09/19/18 09:00 10/19/18 08:59 Atorvastatin Calcium (Lipitor) 80 mg BEDTIME ORAL 09/18/18 21:00 10/18/18 20:59 Clopidogrel Bisulfate (Plavix) 75 mg DAILY ORAL 09/18/18 09:00 10/18/18 08:59 09/18/18 08:13 Diltiazem HCl (Cardizem) 10 mg Q1H PRN IV heart rate more than 120, 09/17/18 19:18 10/17/18 19:17 Heparin Sodium (Porcine) (Heparin 5000 units/ml) 5,000 units EVERY 12 HOURS SUBQ 09/17/18 21:00 7/3/19 20:59 09/18/18 08:14 Labetalol HCl (Normodyne) 20 mg Q1H PRN IV sbp more than 160 09/17/18 18:45 10/17/18 18:44 09/18/18 05:05 Metformin HCl (Glucophage) 500 mg BID ORAL 09/18/18 18:00 10/18/18 17:59 Metoprolol Tartrate (Lopressor) 100 mg EVERY 12 HOURS ORAL 09/18/18 21:00 10/18/18 20:59 Nitroglycerin (Ntg) 0.4 mg Q5MIN X 3 DOSES PRN SL Prn Chest Pain 09/17/18 18:44 10/17/18 18:43 Ondansetron HCl (Zofran) 4 mg Q6H PRN IVP Nausea & Vomiting 09/17/18 18:44 10/17/18 18:43 Pantoprazole (Protonix) 40 mg DAILY ORAL 09/18/18 09:00 10/18/18 08:59 09/18/18 08:13 Polyethylene Glycol (Miralax) 17 gm DAILYPRN PRN ORAL Constipation 09/17/18 18:47 10/17/18 18:46 Temazepam (Restoril) 15 mg HSPRN PRN ORAL Insomnia 09/17/18 21:00 09/24/18 20:59 Assessment/Plan Problem List: (1) Non-ST elevation (NSTEMI) myocardial infarction ICD Codes: I21.4 - Non-ST elevation (NSTEMI) myocardial infarction SNOMED: 48637083 (2) Palpitations ICD Codes: R00.2 - Palpitations SNOMED: 42682635 (3) Elevated troponin ICD Codes: R74.8 - Abnormal levels of other serum enzymes SNOMED: 884696820, 335927411, 187776043 (4) Atrial fibrillation ICD Codes: I48.91 - Unspecified atrial fibrillation SNOMED: 61104797 (5) S/P ablation of atrial fibrillation ICD Codes: Z98.890 - Other specified postprocedural states; Z86.79 - Personal history of other diseases of the circulatory system SNOMED: 015876783, 217089817, 128658939, 960866983 (6) Diabetes mellitus ICD Codes: E11.9 - Type 2 diabetes mellitus without complications SNOMED: 87558649 Assessment/Plan: monitor heart rate cardizem prn IV titrate cardiac meds f/u cardiology recommendations sliding scale diabetic diet pt/ot Mireille Guardado MD Sep 18, 2018 11:42
[2018-09-18] MEDS ORDERED: metFORMIN 500mg tab ORAL SCH (12:20)
--- NOTE | 2018-09-18 12:25 | NUR ---
NURSE NOTES: left a message to dr montero if he wants to put the patient is sliding scale since blood sugar was 221..awaits callback and new order as of this time.
[2018-09-18] MEDS: Nitroglycerin Subl 0.4mg tab SL PRN (14:13)
--- NOTE | 2018-09-18 15:53 | NUR ---
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 CC:PALPITATIONS SI:ARRHYTHMIA/HYPERTENSION . ELEVATED TROPONIN VS: BP 216/127, P 86, T 98.0, RR 20, SpO2 100 RBC 3.91, H&H 11.3/35.7, K 3.3, TROPONIN 0.586 CXR: Mild pulmonary vascular congestion suspected IS:NS 550 ml IV K-DUR 40meq CEFTRIAXONE 55ml IVPB LOPRESSOR 5mg LORAZEPAM 1mg IM CLONIDINE 0.1mg ADMITTED MED/SURG DCP: RETURN HOME DCP:
--- NOTE | 2018-09-18 16:30 | Consultation ---
DATE OF CONSULTATION: 09/18/2018 CARDIOLOGY CONSULTATION: CONSULTING PHYSICIAN: Praveen Lambert M.D. REFERRING PHYSICIAN: Martin Harrison M.D. REASON FOR CONSULTATION: The patient with history of atrial fibrillation and SVT. HISTORY OF PRESENT ILLNESS: The patient is a 78-year-old lady under my cardiology care with history of recurrent supraventricular tachycardia with multiple EKG documentation of SVTs of 170 beats per minute that terminated with adenosine. The patient underwent successful radiofrequency ablation of typical AV emeterio reentrant tachycardia without recurrence by me at [facility]. The patient was recently discharged on 08/22/2018 from [facility]. The patient also has history of prior myocardial infarction and stent placement in the right coronary artery at [facility] by Dr. Sullivan with a peak troponin of 88. The patient underwent a drug-eluting stent to the subtotal RCA at [facility] and was discharged on aspirin, Plavix, metoprolol, Lipitor as well as Imdur. The patient also has history of hypertension, hyperlipidemia as well as history of atrial fibrillation in the past for which she was on flecainide. Her echocardiogram showed ejection fraction of 75%. The patient was brought in by paramedics after she complained of palpitations even though she denies of any chest pain. The patient was admitted and a Cardiology consultation was obtained for further evaluation and management. In the emergency room blood pressure was as high as 216/127. REVIEW OF SYSTEMS: Negative other than what was mentioned in history of present illness. PAST MEDICAL HISTORY: As mentioned above. FAMILY HISTORY: Noncontributory. SOCIAL HISTORY: She lives at home. Does not smoke or drink alcohol. PHYSICAL EXAMINATION: VITAL SIGNS: Show blood pressure of 157/78, pulse 86, respirations 18, and she is afebrile. HEAD AND NECK: Shows no JVD or carotid bruits. LUNGS: Clear. CARDIOVASCULAR: Regular S1 and S2 with no gallop or murmur. ABDOMEN: Soft. EXTREMITIES: No pitting edema. LABORATORY AND DIAGNOSTIC DATA: Her 12-lead EKG shows normal sinus rhythm with old inferior wall infarct and inferolateral T-wave inversion. Labs show white count of 6.8, hemoglobin of 10.1, hematocrit of 32.3, and platelet of 242. Sodium 142, potassium 3.3, BUN of 10, creatinine 0.9, glucose of 221. Troponin is 0.58, 0.59, and 0.54. BNP 2173. Her urine toxicology is negative. INR is 1.1. ASSESSMENT AND PLAN: 1. 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 The patient has not had documented recurrence. Watch the patient on telemetry. 2. History of atrial fibrillation in the past for which she was on flecainide. Keep the patient off antiarrhythmics as the patient had no clinical documentation of atrial fibrillation since SVT was ablated. 3. Coronary artery disease with acute myocardial infarction with peak troponin of 88, status post drug-eluting stent of the subtotal RCA at [facility] by Dr. Sullivan. Continue Plavix 75 mg daily and aspirin. Change atenolol to metoprolol 100 mg b.i.d. and add Imdur to her medical regimen. We will put the patient back on Lipitor 80 mg daily. 4. Troponin leak. Levels are flat. Repeat the troponin as well as EKG and echocardiogram. 5. History of hypertension. Resume the patient's metoprolol 100 mg b.i.d. and Imdur. Currently, the patient is on Norvasc 10 mg daily, but was on Cardizem 300 mg daily when she was discharged from [facility]. 6. History of iron deficiency anemia and abdominal pain and liver cyst in the past for which she was evaluated by Dr. Drew. Thank you very much, Dr. Harrison for allowing me to participate in the care of this patient. Please do not hesitate to contact me for any questions regarding my evaluation. Praveen Lambert M.D. DR: ESTRELLITA JOB#: [id number] CC:
--- NOTE | 2018-09-18 16:57 | NUR ---
NURSE NOTES: follow up with dr montero again regarding sliding scale. awaits callback, and new order.
[2018-09-18] MEDS: metFORMIN 500mg tab ORAL SCH (17:08)
--- NOTE | 2018-09-18 18:02 | History & Physical ---
History and Physical History & Physicial Dictated for Int Med-Dr Harrison no. [id number]. Renny Osorio MD Sep 18, 2018 18:02
--- NOTE | 2018-09-18 18:24 | NUR ---
NURSE NOTES: dr montero called back and ordered insulin sliding scale moderate. will take note and carry out.
--- NOTE | 2018-09-18 19:15 | NUR ---
NURSE NOTES: Received report from Erendira LANIER. Patient in bed alert and oriented x4, no complaints of pain able to make needs known. Blood pressure stable at this time. No Arrhythmias noted on monitor. Will continue to monitor.
--- NOTE | 2018-09-18 19:16 | NUR ---
HAND-OFF: Report given to ross grove.
--- NOTE | 2018-09-18 20:35 | Cardiology Report ---
APPROVED REPORT EXAM: Two-dimensional and M-mode echocardiogram with Doppler and color Doppler. INDICATION LV FUNCTION M-Mode DIMENSIONS IVSd0.8 (0.7-1.1cm)Left Atrium (MM)3.4 (1.6-4.0cm) LVDd4.6 (3.5-5.6cm)Aortic Root3.0 (2.0-3.7cm) PWd0.8 (0.7-1.1cm)Aortic Cusp Exc.1.5 (1.5-2.0cm) IVSs1.4 cm LVDs3.2 (2.5-4.0cm) PWs1.1 cm Normal left ventricular chamber size, systolic function and wall motion . Left ventricular ejection fraction estimated to be 55-60%. Mild left ventricular hypertrophy . Anterior Echo-free space, may be due to pericardial fat or effusion. All other cardiac chamber sizes are within normal limits. Aortic valve calcification with normal cusp excursion . Mildly thickened mitral valve leaflets with normal excursion. Mild mitral annulus and aortic root calcification. Pulmonic valve not well visualized. IVC at 2.1 cm without physiologic collapse suggestive of increased RA pressure. A color flow and spectral Doppler study was performed and revealed: No aortic insufficiency . Mitral diastolic velocities suggest reduced left ventricular relaxation c/w mild LV diastolic dysfunction (Grade I ). Mild mitral regurgitation. Trace tricuspid regurgitation. Tricuspid systolic velocities suggests peak right ventricular systolic pressure of 34mmHg. Trace pulmonic regurgitation .
[2018-09-18] MEDS: Atorvastatin 80mg tab ORAL SCH (21:01)
[2018-09-18] MEDS: NovoLOG Insulin Flexpen SUBQ SCH (21:03)
--- NOTE | 2018-09-18 21:15 | History and Physical Report ---
DATE OF ADMISSION: 09/17/2018 CHIEF COMPLAINT: The patient is a 78-year-old female, who presents with a chief complaint of "I almost passed out." HISTORY OF PRESENT ILLNESS: The patient has a history of atrial fibrillation. The patient is status post ablation procedure at [facility] in August of 2018. The patient states she felt lightheaded yesterday. The patient states the room did not spin. The patient states simply she felt unsteady. The patient was about to fall. The patient caught herself. The patient did not lose consciousness. The patient dialed 911. The patient was transferred to [facility]. The patient is admitted for near syncopal episode. REVIEW OF SYSTEMS: CONSTITUTIONAL: The patient denies weight loss or weight gain. The patient denies fevers or chills. HEENT: The patient denies ear or throat pain. The patient denies headache. CARDIOVASCULAR: The patient denies palpitations or chest pain. CHEST: The patient denies wheeze or shortness of breath. ABDOMINAL: The patient denies nausea, vomiting, diarrhea, or constipation. GENITOURINARY: The patient denies dysuria or increased frequency of urination. NEUROMUSCULAR: The patient denies seizures. The patient does complain of near syncopal episode as above. PAST MEDICAL HISTORY: Significant for: 1. Type 2 diabetes. 2. Hypertension 3. Hypercholesterolemia. 4. Coronary artery disease, status post myocardial infarction in the past. 5. Atrial fibrillation. PAST SURGICAL HISTORY: Significant for: 1. Total abdominal hysterectomy. 2. Ablation of atrial fibrillation in August of 2018. CURRENT MEDICATIONS: 1. Amlodipine 10 mg p.o. daily. 2. Aspirin 81 mg p.o. daily. 3. Atenolol 50 mg p.o. daily. 4. Atorvastatin 40 mg p.o. daily. 5. Clonidine 0.1 mg p.o. q.6 hours. 6. Clopidogrel 75 mg p.o. daily. 7. Avapro 150 mg p.o. daily. 8. Metformin 500 mg p.o. twice daily. ALLERGIES: Iodine. SOCIAL HISTORY: The patient is and lives alone. The patient denies tobacco use having quit 30 years previously. The patient denies alcohol use. PHYSICAL EXAMINATION: VITAL SIGNS: Temperature 97.9, respirations 22, pulse 80, and blood pressure 155/87 to 162/75. GENERAL: The patient is a well-developed and well-nourished slightly obese female, in no apparent distress. HEENT: Eyes, pupils are equal and responsive to light and accommodation. Extraocular movements are intact. NECK: Supple without lymphadenopathy. CHEST: Lungs are clear to auscultation bilaterally without wheezes or rales. CARDIOVASCULAR: Regular rhythm and rate. S1 and S2 are normal without murmurs, rubs, or gallops. ABDOMEN: Soft, nontender, and nondistended. Positive bowel sounds. No evidence of hepatosplenomegaly. Currently, no rebound or guarding noted. EXTREMITIES: Negative for clubbing, cyanosis, or edema. RECTAL/GENITAL: Refused. NEUROLOGIC: Cranial nerves II through XII are grossly intact without focal deficits. Motor strength is 5/5 bilaterally. Deep tendon reflexes are 2+ plantar. LABORATORY STUDIES: WBC 8.3, hemoglobin 11.3, hematocrit 35.7, and platelets 216,000. Sodium 143, potassium 3.3 chloride 105, CO2 31, BUN 10, creatinine 0.9, and glucose 221. Troponin elevated at 0.586. BNP elevated at 2173. ASSESSMENT: This is a 38-year-old female. 1. Near syncope. 2. Atrial fibrillation. 3. Diabetes type 2. 4. Hypertension. 5. Hypercholesterolemia. 6. Coronary artery disease. TREATMENT: 1. Near syncope. This may be secondary to atrial fibrillation. A Cardiology consultation has been obtained with Dr. Jeffery Dumont. We will follow recommendations of Dr. Dumont. 2. Diabetes type 2. A NovoLog sliding scale has been instituted. 3. Hypertension. Continue metoprolol as above. 4. Hypercholesterolemia. Continue Lipitor as above. 5. Coronary artery disease. Renny Osorio M.D. DR: DANIEL JOB#: [id number] CC:
[2018-09-19] VITALS (9 sets, daily range): BP systolic 145–176; BP diastolic 77–97
--- NOTE | 2018-09-19 00:24 | NUR ---
HAND-OFF: Report given to YOLANDE Rodriges. Pt in bed resting. RN to continue care.
[2018-09-19] MEDS: Nitroglycerin Subl 0.4mg tab SL PRN ×2 (00:46→06:37)
[2018-09-19 05:43] LABS: BASOPHILS % (AUTO) 0.9 % (0.0-2.0); EOSINOPHILS % (AUTO) 1.7 % (0.0-3.0); HEMATOCRIT 34.7 % (37.0-47.0); LYMPHOCYTES % (AUTO) 28.4 % (20.0-45.0); MEAN CORPUSCULAR VOLUME 82 FL (80-99); MONOCYTES % (AUTO) 8.4 % (1.0-10.0); NEUTROPHILS % (AUTO) 60.7 % (45.0-75.0); PLATELET COUNT 271 K/UL (150-450); RED CELL DISTRIBUTION WIDTH 22.4 % (11.6-14.8); WHITE BLOOD COUNT 8.2 K/UL (4.8-10.8)
[2018-09-19 06:00] LABS: ANION GAP 10 mmol/L (5-15); BLOOD UREA NITROGEN 8 mg/dL (7-18); CALCIUM 9.4 MG/DL (8.5-10.1); CARBON DIOXIDE 28 MMOL/L (21-32); CHLORIDE 105 MMOL/L (98-107); CREATININE 0.9 MG/DL (0.55-1.30); POTASSIUM 3.2 MMOL/L (3.5-5.1); SODIUM 143 MMOL/L (136-145)
[2018-09-19] MEDS: NovoLOG Insulin Flexpen SUBQ SCH ×4 (06:34→20:56)
--- NOTE | 2018-09-19 07:42 | NUR ---
HAND-OFF: Report given to Erendira LANIER. Patient in stable condition.
--- NOTE | 2018-09-19 07:59 | NUR ---
NURSE NOTES: left a message to dr martinez informing him that he is a cardio consult for this patient. awaits callback and new order as of this time.
[2018-09-19] MEDS: metFORMIN 500mg tab ORAL SCH ×2 (08:21→17:20)
[2018-09-19] MEDS: Aspirin EC 81mg tab ORAL SCH (08:21)
[2018-09-19] MEDS: Heparin 5000 units/ml inj SUBQ SCH ×2 (08:23→20:56)
--- NOTE | 2018-09-19 11:02 | Pulmonology Progress Note ---
Assessment/Plan Problems: (1) Non-ST elevation (NSTEMI) myocardial infarction (2) Palpitations (3) Elevated troponin (4) Atrial fibrillation (5) Hypokalemia (6) Diabetes mellitus (7) S/P ablation of atrial fibrillation Assessment/Plan BP slightly better heart rate controlled sliding scale diabetic diet K supplement symptomatic treatment dvt prophylaxis. Subjective ROS Limited/Unobtainable: No Interval Events: doing better Allergies: Coded Allergies: IODINE (Unverified Allergy, Unknown, 09/17/18) Objective Last 24 Hour Vital Signs Date Time Temp Pulse Resp B/P (MAP) Pulse Ox O2 Delivery O2 Flow Rate FiO2 09/19/18 09:00 Room Air 09/19/18 08:22 81 157/90 09/19/18 08:00 97.9 81 20 157/90 (112) 94 09/19/18 08:00 85 09/19/18 07:20 85 16 94 Room Air 21 09/19/18 06:37 152/83 09/19/18 04:00 98.2 83 20 176/90 (118) 95 09/19/18 04:00 Room Air 09/19/18 03:49 83 09/19/18 00:46 157/96 09/19/18 00:03 157/96 (116) 09/19/18 00:02 175/83 (113) 09/19/18 00:00 97.3 83 20 175/97 (123) 96 09/19/18 00:00 Room Air 09/18/18 23:53 83 175/97 09/18/18 23:41 87 09/18/18 21:03 83 176/90 09/18/18 21:00 83 176/90 09/18/18 20:52 82 18 96 Room Air 21 09/18/18 20:00 Room Air 09/18/18 20:00 77 09/18/18 20:00 98.2 83 20 176/90 (118) 95 09/18/18 18:08 157/86 (109) 09/18/18 17:43 82 179/86 09/18/18 16:00 77 09/18/18 16:00 Room Air 09/18/18 16:00 97.5 82 21 162/90 (114) 95 09/18/18 14:13 175/94 09/18/18 14:00 175/94 (121) 09/18/18 13:43 79 175/94 09/18/18 12:00 97.9 80 22 155/87 (109) 98 09/18/18 12:00 72 09/18/18 12:00 Room Air Intake and Output 09/18/18 09/19/18 19:00 07:00 Intake Total 250 ml 50 ml Output Total 1700 ml 1400 ml Balance -1450 ml -1350 ml Intake Oral 250 ml 50 ml Output Urine Total 1700 ml 1400 ml # Bowel Movements 3 3 General Appearance: WD/WN HEENT: normocephalic, atraumatic Respiratory/Chest: chest wall non-tender, lungs clear Breasts: no masses Cardiovascular: normal peripheral pulses, normal rate Abdomen: normal bowel sounds, no organomegaly Genitourinary: normal external genitalia Skin: no rash Laboratory Tests 09/19/18 04:50: White Blood Count 8.2, Red Blood Count 4.20, Hemoglobin 11.0L, Hematocrit 34.7L , Mean Corpuscular Volume 82, Mean Corpuscular Hemoglobin 26.3L, Mean Corpuscular Hemoglobin Concent 31.9L, Red Cell Distribution Width 22.4H, Platelet Count 271, Mean Platelet Volume 7.8, Neutrophils (%) (Auto) 60.7, Lymphocytes (%) (Auto) 28.4, Monocytes (%) (Auto) 8.4, Eosinophils (%) (Auto) 1.7, Basophils (%) (Auto) 0.9, Sodium Level 143, Potassium Level 3.2L, Chloride Level 105, Carbon Dioxide Level 28, Anion Gap 10, Blood Urea Nitrogen 8, Creatinine 0.9, Estimat Glomerular Filtration Rate , Glucose Level 123H, Calcium Level 9.4, Troponin I 0.531H, Pro-B-Type Natriuretic Peptide 1918H Current Medications Medications (Trade) Dose Ordered Sig/Ashly Route PRN Reason Start Time Stop Time Status Last Admin Dose Admin Acetaminophen (Tylenol) 650 mg Q4H PRN ORAL FEVER 09/17/18 18:44 10/17/18 18:43 Albuterol/ Ipratropium (Albuterol/ Ipratropium) 3 ml Q4H PRN HHN Shortness of Breath 09/17/18 18:44 09/22/18 18:43 Amlodipine Besylate (Norvasc) 10 mg DAILY ORAL 09/18/18 09:00 10/18/18 08:59 09/19/18 08:22 Aspirin (Ecotrin) 81 mg DAILY ORAL 09/19/18 09:00 10/19/18 08:59 09/19/18 08:21 Atorvastatin Calcium (Lipitor) 80 mg BEDTIME ORAL 09/18/18 21:00 10/18/18 20:59 09/18/18 21:01 Clopidogrel Bisulfate (Plavix) 75 mg DAILY ORAL 09/18/18 09:00 10/18/18 08:59 09/19/18 08:22 Dextrose (Dextrose 50%) 25 ml Q30M PRN IV Hypoglycemia 09/18/18 18:30 10/18/18 18:29 Dextrose (Dextrose 50%) 50 ml Q30M PRN IV Hypoglycemia 09/18/18 18:30 10/18/18 18:29 Diltiazem HCl (Cardizem) 10 mg Q1H PRN IV heart rate more than 120, 09/17/18 19:18 10/17/18 19:17 Heparin Sodium (Porcine) (Heparin 5000 units/ml) 5,000 units EVERY 12 HOURS SUBQ 09/17/18 21:00 10/17/18 20:59 09/19/18 08:23 Insulin Aspart (NovoLOG) BEFORE MEALS AND HS SUBQ 09/18/18 21:00 10/18/18 20:59 09/19/18 06:34 Labetalol HCl (Normodyne) 20 mg Q1H PRN IV sbp more than 160 09/17/18 18:45 10/17/18 18:44 09/18/18 23:53 Metformin HCl (Glucophage) 500 mg BID ORAL 09/18/18 18:00 10/18/18 17:59 09/19/18 08:21 Metoprolol Tartrate (Lopressor) 100 mg EVERY 12 HOURS ORAL 09/18/18 21:00 10/18/18 20:59 Nitroglycerin (Ntg) 0.4 mg Q5MIN X 3 DOSES PRN SL Prn Chest Pain 09/17/18 18:44 10/17/18 18:43 09/19/18 06:37 Ondansetron HCl (Zofran) 4 mg Q6H PRN IVP Nausea & Vomiting 09/17/18 18:44 10/17/18 18:43 Pantoprazole (Protonix) 40 mg DAILY ORAL 09/18/18 09:00 10/18/18 08:59 09/19/18 08:21 Polyethylene Glycol (Miralax) 17 gm DAILYPRN PRN ORAL Constipation 09/17/18 18:47 10/17/18 18:46 Temazepam (Restoril) 15 mg HSPRN PRN ORAL Insomnia 09/17/18 21:00 09/24/18 20:59 Mireille Guardado MD Sep 19, 2018 11:02
--- NOTE | 2018-09-19 11:22 | Internal Med Progress Note ---
Subjective Date of Service: Sep 19, 2018 Physician Name Renny Osorio Attending Physician Martin Harrison MD Current Medications Medications (Trade) Dose Ordered Sig/Ashly Route PRN Reason Start Time Stop Time Status Last Admin Dose Admin Acetaminophen (Tylenol) 650 mg Q4H PRN ORAL FEVER 09/17/18 18:44 10/17/18 18:43 Albuterol/ Ipratropium (Albuterol/ Ipratropium) 3 ml Q4H PRN HHN Shortness of Breath 09/17/18 18:44 09/22/18 18:43 Amlodipine Besylate (Norvasc) 10 mg DAILY ORAL 09/18/18 09:00 10/18/18 08:59 09/19/18 08:22 Aspirin (Ecotrin) 81 mg DAILY ORAL 09/19/18 09:00 10/19/18 08:59 09/19/18 08:21 Atorvastatin Calcium (Lipitor) 80 mg BEDTIME ORAL 09/18/18 21:00 10/18/18 20:59 09/18/18 21:01 Clopidogrel Bisulfate (Plavix) 75 mg DAILY ORAL 09/18/18 09:00 10/18/18 08:59 09/19/18 08:22 Dextrose (Dextrose 50%) 25 ml Q30M PRN IV Hypoglycemia 09/18/18 18:30 10/18/18 18:29 Dextrose (Dextrose 50%) 50 ml Q30M PRN IV Hypoglycemia 09/18/18 18:30 10/18/18 18:29 Diltiazem HCl (Cardizem) 10 mg Q1H PRN IV heart rate more than 120, 09/17/18 19:18 10/17/18 19:17 Heparin Sodium (Porcine) (Heparin 5000 units/ml) 5,000 units EVERY 12 HOURS SUBQ 09/17/18 21:00 10/17/18 20:59 09/19/18 08:23 Insulin Aspart (NovoLOG) BEFORE MEALS AND HS SUBQ 09/18/18 21:00 10/18/18 20:59 09/19/18 06:34 Labetalol HCl (Normodyne) 20 mg Q1H PRN IV sbp more than 160 09/17/18 18:45 10/17/18 18:44 09/18/18 23:53 Metformin HCl (Glucophage) 500 mg BID ORAL 09/18/18 18:00 10/18/18 17:59 09/19/18 08:21 Metoprolol Tartrate (Lopressor) 100 mg EVERY 12 HOURS ORAL 09/18/18 21:00 10/18/18 20:59 Nitroglycerin (Ntg) 0.4 mg Q5MIN X 3 DOSES PRN SL Prn Chest Pain 09/17/18 18:44 10/17/18 18:43 09/19/18 06:37 Ondansetron HCl (Zofran) 4 mg Q6H PRN IVP Nausea & Vomiting 09/17/18 18:44 10/17/18 18:43 Pantoprazole (Protonix) 40 mg DAILY ORAL 09/18/18 09:00 10/18/18 08:59 09/19/18 08:21 Polyethylene Glycol (Miralax) 17 gm DAILYPRN PRN ORAL Constipation 09/17/18 18:47 10/17/18 18:46 Potassium Chloride (K-Dur) 40 meq ONCE ORAL 09/19/18 11:00 09/19/18 12:00 Temazepam (Restoril) 15 mg HSPRN PRN ORAL Insomnia 09/17/18 21:00 09/24/18 20:59 Allergies: Coded Allergies: IODINE (Unverified Allergy, Unknown, 09/17/18) ROS Limited/Unobtainable: No Constitutional: Reports: no symptoms HEENT: Reports: no symptoms Cardiovascular: Reports: no symptoms Respiratory: Reports: no symptoms Gastrointestinal/Abdominal: Reports: no symptoms Genitourinary: Reports: no symptoms Neurologic/Psychiatric: Reports: no symptoms Subjective 78 YO F admitted with near syncope and palpations. Cover for Int Rai-DR Harrison. MONICA Objective Last Vital Signs Date Time Temp Pulse Resp B/P (MAP) Pulse Ox O2 Delivery O2 Flow Rate FiO2 09/19/18 09:00 Room Air 09/19/18 08:22 81 157/90 09/19/18 08:00 97.9 20 94 09/19/18 07:20 21 Laboratory Tests Test 09/19/18 04:50 White Blood Count 8.2 K/UL (4.8-10.8) Red Blood Count 4.20 M/UL (4.20-5.40) Hemoglobin 11.0 G/DL (12.0-16.0) L Hematocrit 34.7 % (37.0-47.0) L Mean Corpuscular Volume 82 FL (80-99) Mean Corpuscular Hemoglobin 26.3 PG (27.0-31.0) L Mean Corpuscular Hemoglobin Concent 31.9 G/DL (32.0-36.0) L Red Cell Distribution Width 22.4 % (11.6-14.8) H Platelet Count 271 K/UL (150-450) Mean Platelet Volume 7.8 FL (6.5-10.1) Neutrophils (%) (Auto) 60.7 % (45.0-75.0) Lymphocytes (%) (Auto) 28.4 % (20.0-45.0) Monocytes (%) (Auto) 8.4 % (1.0-10.0) Eosinophils (%) (Auto) 1.7 % (0.0-3.0) Basophils (%) (Auto) 0.9 % (0.0-2.0) Sodium Level 143 MMOL/L (136-145) Potassium Level 3.2 MMOL/L (3.5-5.1) L Chloride Level 105 MMOL/L (98-107) Carbon Dioxide Level 28 MMOL/L (21-32) Anion Gap 10 mmol/L (5-15) Blood Urea Nitrogen 8 mg/dL (7-18) Creatinine 0.9 MG/DL (0.55-1.30) Estimat Glomerular Filtration Rate mL/min (>60) Glucose Level 123 MG/DL (74-106) H Calcium Level 9.4 MG/DL (8.5-10.1) Troponin I 0.531 ng/mL (0.000-0.056) Pro-B-Type Natriuretic Peptide 1918 pg/mL (0-125) H Intake and Output 09/18/18 09/19/18 19:00 07:00 Intake Total 250 ml 50 ml Output Total 1700 ml 1400 ml Balance -1450 ml -1350 ml Intake Oral 250 ml 50 ml Output Urine Total 1700 ml 1400 ml # Bowel Movements 3 3 Objective PHYSICAL EXAMINATION: GENERAL: The patient is a well-developed and well-nourished slightly obese female, in no apparent distress. HEENT: Eyes, pupils are equal and responsive to light and accommodation. Extraocular movements are intact. NECK: Supple without lymphadenopathy. CHEST: Lungs are clear to auscultation bilaterally without wheezes or rales. CARDIOVASCULAR: Regular rhythm and rate. S1 and S2 are normal without murmurs, rubs, or gallops. ABDOMEN: Soft, nontender, and nondistended. Positive bowel sounds. No evidence of hepatosplenomegaly. Currently, no rebound or guarding noted. EXTREMITIES: Negative for clubbing, cyanosis, or edema. RECTAL/GENITAL: Refused. NEUROLOGIC: Cranial nerves II through XII are grossly intact without focal deficits. Motor strength is 5/5 bilaterally. Deep tendon reflexes are 2+ plantar. Assessment/Plan Assessment/Plan ASSESSMENT: This is a 38-year-old female. 1. Near syncope. 2. Atrial fibrillation. 3. Diabetes type 2. 4. Hypertension. 5. Hypercholesterolemia. 6. Coronary artery disease. TREATMENT: 1. Near syncope. Await MRI brain and carotid doppler carotid arteries. This may be secondary to atrial fibrillation versus TIA. A Cardiology consultation has been obtained with Dr. Lambert- follow recommendations. S/P ablation of AVNRT-see cardiol note. 2. Diabetes type 2. A NovoLog sliding scale has been instituted. 3. Hypertension. Continue metoprolol as above. 4. Hypercholesterolemia. Continue Lipitor as above. 5. Coronary artery disease -S/P stent 09/02 Renny Osorio MD Sep 19, 2018 11:22
--- NOTE | 2018-09-19 12:46 | NUR ---
Concerning MRI...Pt refused to do exam due to claustrophobia, even if sedation was given. YOLANDE Dominguez and YOLANDE Krishna has been informed. tjb 12:46
--- NOTE | 2018-09-19 12:58 | NUR ---
NURSE NOTES: left a message to dr copeland regarding patients MRI refusal. per patient, she is claustrophobic. awaits callback and new order.
--- NOTE | 2018-09-19 13:07 | Cardiac Electrophysiology PN ---
Assessment/Plan Assessment/Plan 1. 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 The patient has not had documented recurrence. 2. History of atrial fibrillation in the past for which she was on flecainide. Keep the patient off antiarrhythmics as the patient had no clinical documentation of atrial fibrillation since SVT was ablated. 3. Coronary artery disease with acute myocardial infarction with peak troponin of 88, status post drug-eluting stent of the subtotal RCA at [facility] by Dr. Sullivan. Continue Plavix 75 mg daily, aspirin,metoprolol 100 mg bid,Imdur and Lipitor 80 mg daily. 4. Troponin leak. Levels are flat. Echocardiogram EF 55%. 5. History of hypertension. On metoprolol 100 mg b.i.d. Norvasc 10 and Imdur. 6. History of iron deficiency anemia and abdominal pain and liver cyst in the past for which she was evaluated by Dr. Drew. JANETH RN and Dr. Dumont who will see pt for general Cardiology Subjective Subjective No SVT or atrial fib overnight.No CP or SOB. Objective Last 24 Hour Vital Signs Date Time Temp Pulse Resp B/P (MAP) Pulse Ox O2 Delivery O2 Flow Rate FiO2 09/19/18 12:00 Room Air 09/19/18 09:00 Room Air 09/19/18 08:22 81 157/90 09/19/18 08:00 97.9 81 20 157/90 (112) 94 09/19/18 08:00 85 09/19/18 07:20 85 16 94 Room Air 21 09/19/18 06:37 152/83 09/19/18 04:00 98.2 83 20 176/90 (118) 95 09/19/18 04:00 Room Air 09/19/18 03:49 83 09/19/18 00:46 157/96 09/19/18 00:03 157/96 (116) 09/19/18 00:02 175/83 (113) 09/19/18 00:00 97.3 83 20 175/97 (123) 96 09/19/18 00:00 Room Air 09/18/18 23:53 83 175/97 09/18/18 23:41 87 09/18/18 21:03 83 176/90 09/18/18 21:00 83 176/90 09/18/18 20:52 82 18 96 Room Air 21 09/18/18 20:00 Room Air 09/18/18 20:00 77 09/18/18 20:00 98.2 83 20 176/90 (118) 95 09/18/18 18:08 157/86 (109) 09/18/18 17:43 82 179/86 09/18/18 16:00 77 09/18/18 16:00 Room Air 09/18/18 16:00 97.5 82 21 162/90 (114) 95 09/18/18 14:13 175/94 09/18/18 14:00 175/94 (121) 09/18/18 13:43 79 175/94 Intake and Output 09/18/18 09/19/18 19:00 07:00 Intake Total 250 ml 50 ml Output Total 1700 ml 1400 ml Balance -1450 ml -1350 ml Intake Oral 250 ml 50 ml Output Urine Total 1700 ml 1400 ml # Bowel Movements 3 3 Laboratory Tests Test 09/19/18 04:50 White Blood Count 8.2 K/UL (4.8-10.8) Red Blood Count 4.20 M/UL (4.20-5.40) Hemoglobin 11.0 G/DL (12.0-16.0) L Hematocrit 34.7 % (37.0-47.0) L Mean Corpuscular Volume 82 FL (80-99) Mean Corpuscular Hemoglobin 26.3 PG (27.0-31.0) L Mean Corpuscular Hemoglobin Concent 31.9 G/DL (32.0-36.0) L Red Cell Distribution Width 22.4 % (11.6-14.8) H Platelet Count 271 K/UL (150-450) Mean Platelet Volume 7.8 FL (6.5-10.1) Neutrophils (%) (Auto) 60.7 % (45.0-75.0) Lymphocytes (%) (Auto) 28.4 % (20.0-45.0) Monocytes (%) (Auto) 8.4 % (1.0-10.0) Eosinophils (%) (Auto) 1.7 % (0.0-3.0) Basophils (%) (Auto) 0.9 % (0.0-2.0) Sodium Level 143 MMOL/L (136-145) Potassium Level 3.2 MMOL/L (3.5-5.1) L Chloride Level 105 MMOL/L (98-107) Carbon Dioxide Level 28 MMOL/L (21-32) Anion Gap 10 mmol/L (5-15) Blood Urea Nitrogen 8 mg/dL (7-18) Creatinine 0.9 MG/DL (0.55-1.30) Estimat Glomerular Filtration Rate mL/min (>60) Glucose Level 123 MG/DL (74-106) H Calcium Level 9.4 MG/DL (8.5-10.1) Troponin I 0.531 ng/mL (0.000-0.056) Pro-B-Type Natriuretic Peptide 1918 pg/mL (0-125) H Objective HEAD AND NECK: Shows no JVD or carotid bruits. LUNGS: Clear. CARDIOVASCULAR: Regular S1 and S2 with no gallop or murmur. ABDOMEN: Soft. EXTREMITIES: No pitting edema. Praveen Lambert MD Sep 19, 2018 13:07
--- NOTE | 2018-09-19 15:05 | Cardiology Report ---
APPROVED REPORT EKG Measurement Heart [id number] ID [id number] Normal sinus rhythm Voltage criteria for left ventricular hypertrophy Inferior infarct, age undetermined Anteroseptal infarct, age undetermined T wave abnormality, consider lateral ischemia Abnormal ECG
--- NOTE | 2018-09-19 19:18 | NUR ---
NURSE NOTES: Report received from YOLANDE Krishna. Pt awake, A/O x4, talktive, denies any pain at this time. On room air without signs of sob. SR with cardiac cath lab manager. No distress noted at this time. IV on R AC 20G. Bed in the lowest position. Side rails up x2. Call light within reach. Will continue monitor.
--- NOTE | 2018-09-19 19:23 | NUR ---
HAND-OFF: Report given to patricia grove.
[2018-09-19] MEDS: Labetalol 5mg/ml 20ml vial IV PRN (20:54)
[2018-09-19] MEDS: Atorvastatin 80mg tab ORAL SCH (20:54)
[2018-09-19] MEDS: Losartan 25mg tab ORAL SCH (21:00)
--- NOTE | 2018-09-19 21:00 | Cardiology Progress Note ---
Assessment/Plan Assessment/Plan [id number] agree with stefan rivas bb woul add cozzar may need lwo dose of hctz eventfully will repaet trop and will try to view [facility] showed normal lv function will follow Objective Last 24 Hour Vital Signs Date Time Temp Pulse Resp B/P (MAP) Pulse Ox O2 Delivery O2 Flow Rate FiO2 09/19/18 16:00 80 09/19/18 16:00 98.1 80 20 150/77 (101) 96 09/19/18 16:00 Room Air 09/19/18 12:00 97.7 86 20 155/80 (105) 97 09/19/18 12:00 Room Air 09/19/18 12:00 81 09/19/18 09:00 Room Air 09/19/18 08:22 81 157/90 09/19/18 08:00 97.9 81 20 157/90 (112) 94 09/19/18 08:00 85 09/19/18 07:20 85 16 94 Room Air 21 09/19/18 06:37 152/83 09/19/18 04:00 98.2 83 20 176/90 (118) 95 09/19/18 04:00 Room Air 09/19/18 03:49 83 09/19/18 00:46 157/96 09/19/18 00:03 157/96 (116) 09/19/18 00:02 175/83 (113) 09/19/18 00:00 97.3 83 20 175/97 (123) 96 09/19/18 00:00 Room Air 09/18/18 23:53 83 175/97 09/18/18 23:41 87 09/18/18 21:03 83 176/90 09/18/18 21:00 83 176/90 Intake and Output 09/18/18 09/19/18 18:59 06:59 Intake Total 250 ml 50 ml Output Total 1700 ml 1400 ml Balance -1450 ml -1350 ml Intake Oral 250 ml 50 ml Output Urine Total 1700 ml 1400 ml # Bowel Movements 3 3 Laboratory Tests Test 09/19/18 04:50 09/19/18 18:44 White Blood Count 8.2 K/UL (4.8-10.8) Red Blood Count 4.20 M/UL (4.20-5.40) Hemoglobin 11.0 G/DL (12.0-16.0) L Hematocrit 34.7 % (37.0-47.0) L Mean Corpuscular Volume 82 FL (80-99) Mean Corpuscular Hemoglobin 26.3 PG (27.0-31.0) L Mean Corpuscular Hemoglobin Concent 31.9 G/DL (32.0-36.0) L Red Cell Distribution Width 22.4 % (11.6-14.8) H Platelet Count 271 K/UL (150-450) Mean Platelet Volume 7.8 FL (6.5-10.1) Neutrophils (%) (Auto) 60.7 % (45.0-75.0) Lymphocytes (%) (Auto) 28.4 % (20.0-45.0) Monocytes (%) (Auto) 8.4 % (1.0-10.0) Eosinophils (%) (Auto) 1.7 % (0.0-3.0) Basophils (%) (Auto) 0.9 % (0.0-2.0) Sodium Level 143 MMOL/L (136-145) Potassium Level 3.2 MMOL/L (3.5-5.1) L Chloride Level 105 MMOL/L (98-107) Carbon Dioxide Level 28 MMOL/L (21-32) Anion Gap 10 mmol/L (5-15) Blood Urea Nitrogen 8 mg/dL (7-18) Creatinine 0.9 MG/DL (0.55-1.30) Estimat Glomerular Filtration Rate mL/min (>60) Glucose Level 123 MG/DL (74-106) H Calcium Level 9.4 MG/DL (8.5-10.1) Troponin I 0.531 ng/mL (0.000-0.056) 0.522 ng/mL (0.000-0.056) Pro-B-Type Natriuretic Peptide 1918 pg/mL (0-125) H Jeffery Dumont MD Sep 19, 2018 21:00
[2018-09-20] VITALS: BP 146/79
--- NOTE | 2018-09-20 00:13 | NUR ---
NURSE NOTES: Observed pt sleeping on the bed. BP 146/79 noted. SR with registered nurse cardiac telemetry. No acute distress noted at this time.
[2018-09-20 04:00] VITALS: BP 142/72
--- NOTE | 2018-09-20 04:22 | NUR ---
NURSE NOTES: EKG done. VS WNL, BP of 142/72 noted. Refused to be cleaned up. SR with monitor and storage bin tender. No signs of SOB. Pt appears calm and no acute distress noted at this time. Will continue to monitor.
[2018-09-20 05:22] LABS: BASOPHILS % (AUTO) 1.1 % (0.0-2.0); EOSINOPHILS % (AUTO) 1.9 % (0.0-3.0); HEMATOCRIT 36.3 % (37.0-47.0); HEMOGLOBIN 11.3 G/DL (12.0-16.0); LYMPHOCYTES % (AUTO) 24.3 % (20.0-45.0); MEAN CORPUSCULAR VOLUME 84 FL (80-99); MONOCYTES % (AUTO) 8.6 % (1.0-10.0); NEUTROPHILS % (AUTO) 64.1 % (45.0-75.0); PLATELET COUNT 270 K/UL (150-450); RED BLOOD COUNT 4.34 M/UL (4.20-5.40); RED CELL DISTRIBUTION WIDTH 22.3 % (11.6-14.8); WHITE BLOOD COUNT 8.6 K/UL (4.8-10.8)
--- NOTE | 2018-09-20 05:30 | Consultation ---
DATE OF CONSULTATION: 09/19/2018 CARDIOLOGY CONSULTATION CONSULTING PHYSICIAN: Jeffery Dumont M.D. REFERRING PHYSICIANS: 1. Praveen Lambert M.D. 2. Mireille Guardado M.D. REASON FOR REFERRAL: Hypertension and coronary artery disease. HISTORY OF PRESENT ILLNESS: This is a 78-year-old female who I was asked to see for management of nonarrhythmic cardiac issues by Dr. Lambert. The patient has an extensive history of cardiac issues including history of coronary artery disease dating back to 2004 and she had a stent put in. The details of that are unknown. The patient apparently had a more recent hospitalization, one being at [facility] in [place], at which time, she underwent cardiac catheterization followed by stent in the right coronary artery and subsequently had ablation of AV emeterio reentry tachycardia. There is a question if the patient has had history of atrial fibrillation, although Dr. Lambert does not feel that that is a probability. Nevertheless, the patient apparently has had some problems with her blood pressure control and was admitted to the hospital on 09/17/2018 for dizziness and weakness when she stood up. Denied any vomiting. Apparently, paramedics indicated the patient may have had atrial fibrillation, although dump motorman run sheet is not available to review that information for accuracy where she was not in atrial fibrillation when she was apparently brought to [facility]. The patient indicates that maybe she had elevated blood pressure that has been as high as 200 at home and it has been a concern for her. She has been on several different medications. Previously, she was on atenolol once a day as well as amlodipine 10 mg a day as well as losartan 25 mg twice daily that she was apparently tolerating and she was subsequently placed on the Cardizem, Isordil, and metoprolol, which she stopped taking because of reported intolerance to the medication for several other reasons. Nevertheless, she does not really have any chest pain. When she had a myocardial infarction, apparently she denies having chest pain although she feels there was some kind of rhythm disturbances that was more than her usual palpitations that was positive symptom of a heart attack. She does not have any PND episodes. She uses two pillows. There is dizziness and lightheadedness on standing only when she does go very fast and she of course has palpitations. PAST MEDICAL HISTORY: Positive for diabetes, high blood pressure, and high cholesterol. Prior history of heart attack and stent in 2005 and subsequently in 2019. No cancer. No stroke. No hepatitis or tuberculosis. No asthma or emphysema. No ulcers. No kidney problems, liver problems, thyroid problems, anemia. She may have arthritis. No HIV or AIDS. Her chart at [facility] indicates she has history of atypical chest pain, coronary artery disease with gastritis, obesity, hyperlipidemia in 2013 when she was last hospitalized and of course, the recent hospitalization for radiofrequency ablation of the sole pathway for AV emeterio reentry tachycardia as well as a recent stent to RCA stenosis for myocardial infarction. ALLERGIES: She is allergic to iodine. MEDICATIONS: At the time of this dictation have included for her blood pressure, Norvasc 10 mg daily, she is on aspirin and Plavix, and she is on metoprolol 100 q.12 h. SOCIAL HISTORY: She does not smoke at this time, although she did previously, but she quit sometime ago. She denies any alcoholic beverages. No drug use. REVIEW OF SYSTEMS: GASTROINTESTINAL: She denies any nausea or vomiting. She had some diarrhea approximately 10 days after she had the release from [facility] that apparently has resolved. GENITOURINARY: She denies. PULMONARY: She has occasional coughing. CONSTITUTIONAL: Negative. PHYSICAL EXAMINATION: VITAL SIGNS: Blood pressure had been at the time of admission 216/127 and subsequently she has had the lowest blood pressure of 150/77. GENERAL: Shows a morbidly obese elderly female, in no respiratory distress. NECK: Supple. No jugular venous distention. LUNGS: Clear to auscultation and percussion. CARDIAC: S1 is normal. S2 is normal. Regular rate and rhythm. No heaves, thrills, or gallops noted. There is a systolic ejection murmur noted. ABDOMEN: Obese. Positive bowel sounds. EXTREMITIES: There is no clubbing, cyanosis, or edema. NEUROLOGICAL: She is awake, alert, responsive, and in no apparent distress. LABORATORY AND DIAGNOSTIC DATA: Echocardiogram was performed yesterday and showed ejection fraction of 55% to 60%, mild diastolic relaxation abnormality, pulmonary artery systolic pressure was normal, no significant valvular regurgitation was noted, IVC dilation and non-clot suggestive of mild increase in left atrial pressure. Laboratory values, white count of 8.2, hemoglobin 11, and platelet count of 271,000. Sodium 143, potassium 3.2, chloride 105, bicarbonate of 20, BUN of 8, creatinine 0.9, glucose of 123. Cardiac enzymes, troponin 0.54, 0.53, 0.522. ProBNP is 1900. CRP of 0.5. Total cholesterol 146, LDL of 94, HDL of 34. TSH of 1.49. INR is 1.1 and PTT of 29. Toxicology screen was negative. Urinalysis showed 5 to 10 wbc's. A chest x-ray performed in the emergency room shows mild pulmonary vascular congestion, and proBNP was initially 2100, down to 1918. ASSESSMENT AND PLAN: 1. Hypertension, poorly controlled. 2. Coronary artery disease, status post recent RCA stent. 3. Mild diastolic relaxation abnormality. 4. Diabetes mellitus reportedly. 5. Obesity. 6. SVT, status post ablation. This patient was seen in cardiac consultation. She really does not have any chest pain at this time neither did she have any chest pain at the time of myocardial infarction. Her cardiac enzymes are minimally abnormal, but really without any peak or jolene. They will be repeated. Her electrocardiogram has shown some T-wave inversions in V3, V4, V5, V6, II, III, and aVF. Actually, [facility] have [facility] to directly compare with old EKG. I would continue the dosing of Norvasc as well as beta-blockers for both coronary artery disease as well as possible tachycardias. I will continue the amlodipine that she seems to now indicate that she is tolerating that with ARBs that she also indicates that she is tolerating, one may consider addition of hydrochlorothiazide to her blood pressure regimen to allow better control of her blood pressure. Orthostatic vitals of course will be ordered, although I doubt that they will be positive. She does have some x-ray findings of congestive heart failure and that should be helpful if truly present. Thank you for allowing me to participate in the care of this patient. Jeffery Dumont M.D. DR: APPLE JOB#: [id number] CC:
[2018-09-20 05:51] LABS: ALANINE AMINOTRANSFERASE 11 U/L (12-78); ALBUMIN/GLOBULIN RATIO 0.7 (1.0-2.7); ALKALINE PHOSPHATASE 90 U/L (46-116); ANION GAP 9 mmol/L (5-15); ASPARTATE AMINO TRANSFERASE 14 U/L (15-37); BILIRUBIN,TOTAL 0.7 MG/DL (0.2-1.0); BLOOD UREA NITROGEN 13 mg/dL (7-18); CALCIUM 9.5 MG/DL (8.5-10.1); CARBON DIOXIDE 30 MMOL/L (21-32); CHLORIDE 105 MMOL/L (98-107); POTASSIUM 3.8 MMOL/L (3.5-5.1); SODIUM 143 MMOL/L (136-145)
[2018-09-20] MEDS: NovoLOG Insulin Flexpen SUBQ SCH ×4 (06:30→20:20)
--- NOTE | 2018-09-20 07:26 | NUR ---
HAND-OFF: Report given to YOLANDE Mims. No distress noted at this time.
--- NOTE | 2018-09-20 07:27 | NUR ---
NURSE NOTES: Received report from YOLANDE Stock. Observed patient in bed, awake, verbally responsive, and able to make needs known. Patient on room air, no acute distress noted. Right AC 20g saline lock intact and patent. Denies pain/discomfort at this time. Bed locked, alarmed, and in lowest position, side rails up x3, call light left within reach, and instructed to use call light for assistance.
[2018-09-20 08:00] VITALS: BP 136/77
[2018-09-20] MEDS: Losartan 25mg tab ORAL SCH ×2 (08:59→20:15)
[2018-09-20] MEDS: Aspirin EC 81mg tab ORAL SCH (09:00)
[2018-09-20] MEDS: metFORMIN 500mg tab ORAL SCH ×2 (09:00→18:12)
[2018-09-20] MEDS: Heparin 5000 units/ml inj SUBQ SCH ×2 (09:01→20:16)
--- NOTE | 2018-09-20 10:10 | NUR ---
PT EVALUATION NOTE Patient seen for initial evaluation, see complete evaluation for details. Patient presents with generalized weakness and limited mobility due to c/o dizziness. Patient will benefit from skilled inpatient PT intervention to address strength, safety, balance and functional mobility. Recommend discharge to SNF for short term rehab vs home with assistance depending on patient's progress as patient lives alone. DME to be determined based on discharge disposition and patient's progress. Addendum: 09/20/18 at 1246 by ANGELITA MARTINEZ PT Amended: Links added.
--- NOTE | 2018-09-20 11:12 | Pulmonology Progress Note ---
Assessment/Plan Problems: (1) Non-ST elevation (NSTEMI) myocardial infarction (2) Palpitations (3) Elevated troponin (4) Atrial fibrillation (5) Hypokalemia (6) Diabetes mellitus (7) S/P ablation of atrial fibrillation Assessment/Plan BP slightly better heart rate controlled sliding scale diabetic diet K supplement symptomatic treatment dvt prophylaxis. Subjective ROS Limited/Unobtainable: No Constitutional: Reports: no symptoms HEENT: Repors: no symptoms Respiratory: Reports: no symptoms Allergies: Coded Allergies: IODINE (Unverified Allergy, Unknown, 09/17/18) Objective Last 24 Hour Vital Signs Date Time Temp Pulse Resp B/P (MAP) Pulse Ox O2 Delivery O2 Flow Rate FiO2 09/20/18 09:00 85 136/77 09/20/18 09:00 85 136/77 09/20/18 08:59 136/77 09/20/18 08:00 Room Air 09/20/18 08:00 85 09/20/18 08:00 98.2 85 18 136/77 (96) 96 09/20/18 07:30 79 18 96 Room Air 21 09/20/18 04:00 80 09/20/18 04:00 Room Air 09/20/18 04:00 98.6 83 18 142/72 (95) 95 09/20/18 00:00 81 09/20/18 00:00 Room Air 09/20/18 00:00 97.5 82 20 146/79 (101) 96 09/19/18 22:00 145/86 (105) 09/19/18 21:00 145/86 09/19/18 20:54 85 173/83 09/19/18 20:00 82 09/19/18 20:00 98.8 85 20 173/83 (113) 98 09/19/18 20:00 Room Air 09/19/18 19:54 84 18 97 Room Air 21 09/19/18 16:00 80 09/19/18 16:00 98.1 80 20 150/77 (101) 96 09/19/18 16:00 Room Air 09/19/18 12:00 97.7 86 20 155/80 (105) 97 09/19/18 12:00 Room Air 09/19/18 12:00 81 Intake and Output 09/19/18 09/20/18 19:00 07:00 Intake Total 450 ml 120 ml Output Total 1500 ml 500 ml Balance -1050 ml -380 ml Intake Oral 450 ml 120 ml Output Urine Total 1500 ml 500 ml # Bowel Movements 3 3 General Appearance: WD/WN HEENT: normocephalic, atraumatic Respiratory/Chest: chest wall non-tender, lungs clear Breasts: no masses Cardiovascular: normal peripheral pulses, normal rate Abdomen: normal bowel sounds, soft, non tender Extremities: no cyanosis, no clubbing Skin: no rash Neurologic/Psychiatric: correctional nurse II-XII grossly normal Microbiology Date/Time Source Procedure Growth Status 09/17/18 20:45 Nasal Nares MRSA Culture - Final NO METHICILLIN RESISTANT STAPH AUREUS... Complete Laboratory Tests 09/19/18 18:44: Troponin I 0.522H 09/20/18 03:30: Troponin I 0.476H, White Blood Count 8.6, Red Blood Count 4.34, Hemoglobin 11.3L , Hematocrit 36.3L, Mean Corpuscular Volume 84, Mean Corpuscular Hemoglobin 26.0L, Mean Corpuscular Hemoglobin Concent 31.1L, Red Cell Distribution Width 22.3H, Platelet Count 270, Mean Platelet Volume 8.3, Neutrophils (%) (Auto) 64.1 , Lymphocytes (%) (Auto) 24.3, Monocytes (%) (Auto) 8.6, Eosinophils (%) (Auto) 1.9, Basophils (%) (Auto) 1.1, Sodium Level 143, Potassium Level 3.8, Chloride Level 105, Carbon Dioxide Level 30, Anion Gap 9, Blood Urea Nitrogen 13, Creatinine 1.0, Estimat Glomerular Filtration Rate , Glucose Level 116H, Calcium Level 9.5, Magnesium Level 1.4L, Total Bilirubin 0.7, Aspartate Amino Transf (AST/SGOT) 14L, Alanine Aminotransferase (ALT/SGPT) 11L, Alkaline Phosphatase 90, Pro-B-Type Natriuretic Peptide 1443H, Total Protein 7.3, Albumin 3.0L, Globulin 4.3, Albumin/Globulin Ratio 0.7L Current Medications Medications (Trade) Dose Ordered Sig/Ashly Route PRN Reason Start Time Stop Time Status Last Admin Dose Admin Acetaminophen (Tylenol) 650 mg Q4H PRN ORAL FEVER 09/17/18 18:44 10/17/18 18:43 Albuterol/ Ipratropium (Albuterol/ Ipratropium) 3 ml Q4H PRN HHN Shortness of Breath 09/17/18 18:44 09/22/18 18:43 Amlodipine Besylate (Norvasc) 10 mg DAILY ORAL 09/18/18 09:00 10/18/18 08:59 09/20/18 09:00 Aspirin (Ecotrin) 81 mg DAILY ORAL 09/19/18 09:00 10/19/18 08:59 09/20/18 09:00 Atorvastatin Calcium (Lipitor) 80 mg BEDTIME ORAL 09/18/18 21:00 10/18/18 20:59 09/19/18 20:54 Clopidogrel Bisulfate (Plavix) 75 mg DAILY ORAL 09/18/18 09:00 10/18/18 08:59 09/20/18 09:00 Dextrose (Dextrose 50%) 25 ml Q30M PRN IV Hypoglycemia 09/18/18 18:30 10/18/18 18:29 Dextrose (Dextrose 50%) 50 ml Q30M PRN IV Hypoglycemia 09/18/18 18:30 10/18/18 18:29 Diltiazem HCl (Cardizem) 10 mg Q1H PRN IV heart rate more than 120, 09/17/18 19:18 10/17/18 19:17 Heparin Sodium (Porcine) (Heparin 5000 units/ml) 5,000 units EVERY 12 HOURS SUBQ 09/17/18 21:00 10/17/18 20:59 09/20/18 09:01 Insulin Aspart (NovoLOG) BEFORE MEALS AND HS SUBQ 09/18/18 21:00 10/18/18 20:59 09/19/18 17:22 Labetalol HCl (Normodyne) 20 mg Q1H PRN IV sbp more than 160 09/17/18 18:45 10/17/18 18:44 09/19/18 20:54 Losartan Potassium (Cozaar) 25 mg EVERY 12 HOURS ORAL 09/19/18 21:00 10/19/18 20:59 09/20/18 08:59 Metformin HCl (Glucophage) 500 mg BID ORAL 09/18/18 18:00 10/18/18 17:59 09/20/18 09:00 Metoprolol Tartrate (Lopressor) 100 mg EVERY 12 HOURS ORAL 09/18/18 21:00 10/18/18 20:59 Nitroglycerin (Ntg) 0.4 mg Q5MIN X 3 DOSES PRN SL Prn Chest Pain 09/17/18 18:44 10/17/18 18:43 09/19/18 06:37 Ondansetron HCl (Zofran) 4 mg Q6H PRN IVP Nausea & Vomiting 09/17/18 18:44 10/17/18 18:43 Pantoprazole (Protonix) 40 mg DAILY ORAL 09/18/18 09:00 10/18/18 08:59 09/20/18 09:00 Polyethylene Glycol (Miralax) 17 gm DAILYPRN PRN ORAL Constipation 09/17/18 18:47 10/17/18 18:46 Temazepam (Restoril) 15 mg HSPRN PRN ORAL Insomnia 09/17/18 21:00 09/24/18 20:59 Mireille Guardado MD Sep 20, 2018 11:12
[2018-09-20 12:00] VITALS: BP 140/82
--- NOTE | 2018-09-20 14:11 | NUR ---
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 97.9 HR 82 RR 20 B/P 140/82 TROP 0.476 BNP 1443 MG 1.4 IS: HEPARIN SUBC COZAAR ASA LOPRESSOR ALB HHN STEP DOWN STATUS
[2018-09-20 16:00] VITALS: BP 139/74
--- NOTE | 2018-09-20 19:13 | NUR ---
HAND-OFF: Report given to Juan Ramon Guthrie RN. Patient in stable condition.
--- NOTE | 2018-09-20 19:14 | NUR ---
NURSE NOTES: RECEIVED REPORT FROM YOLANDE LAWRENCE. PT IS X4, ABLE TO MAKE NEEDS KNOWN. ON RA, SATING WELL. SKIN IS CLEAN, DRY, INTACT, PURWICK IN PLACE AND DRAINING. RAC 20 G ASYMPTOMATIC, SL. BED IS LOCKED IN LOWEST POSITION, SR X3, CALL WARE W/ IN REACH, BED ALARM ON. WILL CONTINUE TO MONITOR AND FOLLOW W/ PLAN OF CARE.
--- NOTE | 2018-09-20 19:26 | Internal Med Progress Note ---
Subjective Date of Service: Sep 20, 2018 Physician Name Renny Osorio Attending Physician Martin Harrison MD Current Medications Medications (Trade) Dose Ordered Sig/Ashly Route PRN Reason Start Time Stop Time Status Last Admin Dose Admin Acetaminophen (Tylenol) 650 mg Q4H PRN ORAL FEVER 09/17/18 18:44 10/17/18 18:43 Albuterol/ Ipratropium (Albuterol/ Ipratropium) 3 ml Q4H PRN HHN Shortness of Breath 09/17/18 18:44 09/22/18 18:43 Amlodipine Besylate (Norvasc) 10 mg DAILY ORAL 09/18/18 09:00 10/18/18 08:59 09/20/18 09:00 Aspirin (Ecotrin) 81 mg DAILY ORAL 09/19/18 09:00 10/19/18 08:59 09/20/18 09:00 Atorvastatin Calcium (Lipitor) 80 mg BEDTIME ORAL 09/18/18 21:00 10/18/18 20:59 09/19/18 20:54 Clopidogrel Bisulfate (Plavix) 75 mg DAILY ORAL 09/18/18 09:00 10/18/18 08:59 09/20/18 09:00 Dextrose (Dextrose 50%) 25 ml Q30M PRN IV Hypoglycemia 09/18/18 18:30 10/18/18 18:29 Dextrose (Dextrose 50%) 50 ml Q30M PRN IV Hypoglycemia 09/18/18 18:30 10/18/18 18:29 Diltiazem HCl (Cardizem) 10 mg Q1H PRN IV heart rate more than 120, 09/17/18 19:18 10/17/18 19:17 Heparin Sodium (Porcine) (Heparin 5000 units/ml) 5,000 units EVERY 12 HOURS SUBQ 09/17/18 21:00 10/17/18 20:59 09/20/18 09:01 Insulin Aspart (NovoLOG) BEFORE MEALS AND HS SUBQ 09/18/18 21:00 10/18/18 20:59 09/20/18 11:23 Labetalol HCl (Normodyne) 20 mg Q1H PRN IV sbp more than 160 09/17/18 18:45 10/17/18 18:44 09/19/18 20:54 Losartan Potassium (Cozaar) 25 mg EVERY 12 HOURS ORAL 09/19/18 21:00 10/19/18 20:59 09/20/18 08:59 Metformin HCl (Glucophage) 500 mg BID ORAL 09/18/18 18:00 10/18/18 17:59 09/20/18 18:12 Metoprolol Tartrate (Lopressor) 100 mg EVERY 12 HOURS ORAL 09/18/18 21:00 10/18/18 20:59 Nitroglycerin (Ntg) 0.4 mg Q5MIN X 3 DOSES PRN SL Prn Chest Pain 09/17/18 18:44 10/17/18 18:43 09/19/18 06:37 Ondansetron HCl (Zofran) 4 mg Q6H PRN IVP Nausea & Vomiting 09/17/18 18:44 10/17/18 18:43 Pantoprazole (Protonix) 40 mg DAILY ORAL 09/18/18 09:00 10/18/18 08:59 09/20/18 09:00 Polyethylene Glycol (Miralax) 17 gm DAILYPRN PRN ORAL Constipation 09/17/18 18:47 10/17/18 18:46 Temazepam (Restoril) 15 mg HSPRN PRN ORAL Insomnia 09/17/18 21:00 09/24/18 20:59 Allergies: Coded Allergies: IODINE (Unverified Allergy, Unknown, 09/17/18) ROS Limited/Unobtainable: No Constitutional: Reports: no symptoms HEENT: Reports: no symptoms Cardiovascular: Reports: no symptoms Respiratory: Reports: no symptoms Gastrointestinal/Abdominal: Reports: no symptoms Genitourinary: Reports: no symptoms Neurologic/Psychiatric: Reports: no symptoms Subjective 78 YO F admitted with near syncope and palpations. Cover for Int Rai-DR Harrison. MONICA Objective Last Vital Signs Date Time Temp Pulse Resp B/P (MAP) Pulse Ox O2 Delivery O2 Flow Rate FiO2 09/20/18 16:00 Room Air 09/20/18 16:00 105 09/20/18 16:00 98.2 20 139/74 (95) 96 09/20/18 07:30 21 Laboratory Tests Test 09/20/18 03:30 White Blood Count 8.6 K/UL (4.8-10.8) Red Blood Count 4.34 M/UL (4.20-5.40) Hemoglobin 11.3 G/DL (12.0-16.0) L Hematocrit 36.3 % (37.0-47.0) L Mean Corpuscular Volume 84 FL (80-99) Mean Corpuscular Hemoglobin 26.0 PG (27.0-31.0) L Mean Corpuscular Hemoglobin Concent 31.1 G/DL (32.0-36.0) L Red Cell Distribution Width 22.3 % (11.6-14.8) H Platelet Count 270 K/UL (150-450) Mean Platelet Volume 8.3 FL (6.5-10.1) Neutrophils (%) (Auto) 64.1 % (45.0-75.0) Lymphocytes (%) (Auto) 24.3 % (20.0-45.0) Monocytes (%) (Auto) 8.6 % (1.0-10.0) Eosinophils (%) (Auto) 1.9 % (0.0-3.0) Basophils (%) (Auto) 1.1 % (0.0-2.0) Sodium Level 143 MMOL/L (136-145) Potassium Level 3.8 MMOL/L (3.5-5.1) Chloride Level 105 MMOL/L (98-107) Carbon Dioxide Level 30 MMOL/L (21-32) Anion Gap 9 mmol/L (5-15) Blood Urea Nitrogen 13 mg/dL (7-18) Creatinine 1.0 MG/DL (0.55-1.30) Estimat Glomerular Filtration Rate mL/min (>60) Glucose Level 116 MG/DL (74-106) H Calcium Level 9.5 MG/DL (8.5-10.1) Magnesium Level 1.4 MG/DL (1.8-2.4) L Total Bilirubin 0.7 MG/DL (0.2-1.0) Aspartate Amino Transf (AST/SGOT) 14 U/L (15-37) L Alanine Aminotransferase (ALT/SGPT) 11 U/L (12-78) L Alkaline Phosphatase 90 U/L (46-116) Troponin I 0.476 ng/mL (0.000-0.056) Pro-B-Type Natriuretic Peptide 1443 pg/mL (0-125) H Total Protein 7.3 G/DL (6.4-8.2) Albumin 3.0 G/DL (3.4-5.0) L Globulin 4.3 g/dL Albumin/Globulin Ratio 0.7 (1.0-2.7) L Microbiology Date/Time Source Procedure Growth Status 09/17/18 20:45 Nasal Nares MRSA Culture - Final NO METHICILLIN RESISTANT STAPH AUREUS... Complete Intake and Output 09/19/18 09/20/18 19:00 07:00 Intake Total 450 ml 120 ml Output Total 1500 ml 500 ml Balance -1050 ml -380 ml Intake Oral 450 ml 120 ml Output Urine Total 1500 ml 500 ml # Bowel Movements 3 3 Objective PHYSICAL EXAMINATION: GENERAL: The patient is a well-developed and well-nourished slightly obese female, in no apparent distress. HEENT: Eyes, pupils are equal and responsive to light and accommodation. Extraocular movements are intact. NECK: Supple without lymphadenopathy. CHEST: Lungs are clear to auscultation bilaterally without wheezes or rales. CARDIOVASCULAR: Regular rhythm and rate. S1 and S2 are normal without murmurs, rubs, or gallops. ABDOMEN: Soft, nontender, and nondistended. Positive bowel sounds. No evidence of hepatosplenomegaly. Currently, no rebound or guarding noted. EXTREMITIES: Negative for clubbing, cyanosis, or edema. RECTAL/GENITAL: Refused. NEUROLOGIC: Cranial nerves II through XII are grossly intact without focal deficits. Motor strength is 5/5 bilaterally. Deep tendon reflexes are 2+ plantar. Assessment/Plan Assessment/Plan ASSESSMENT: This is a 38-year-old female. 1. Near syncope. 2. Atrial fibrillation. 3. Diabetes type 2. 4. Hypertension. 5. Hypercholesterolemia. 6. Coronary artery disease. 7. AV emeterio reentrant tachycardia TREATMENT: 1. Near syncope. Await MRI brain and carotid doppler carotid arteries. This may be secondary to atrial fibrillation versus TIA. A Cardiology consultation has been obtained with Dr. Lambert- follow recommendations. S/P ablation of AVNRT-see cardiol note. 2. Diabetes type 2. A NovoLog sliding scale has been instituted. 3. Hypertension. Continue metoprolol as above. 4. Hypercholesterolemia. Continue Lipitor as above. 5. Coronary artery disease -S/P stent 09/02 Renny Osorio MD Sep 20, 2018 19:26
--- NOTE | 2018-09-20 19:48 | Cardiology Progress Note ---
Assessment/Plan Assessment/Plan 1. Hypertension, poorly controlled. 2. Coronary artery disease, status post recent RCA stent. 3. Mild diastolic relaxation abnormality. 4. Diabetes mellitus reportedly. 5. Obesity. 6. SVT, status post ablation. 7. Hypokalemia 8. Hypomagnesemia echo showed normal lv function bp isbetter mg supplement ? etiology of hypokalema ? RTA telel neg need more PT anxious Subjective Cardiovascular: Reports: lightheadedness; Denies: chest pain Respiratory: Denies: shortness of breath Gastrointestinal/Abdominal: Denies: abdominal pain Genitourinary: Denies: no symptoms Objective Last 24 Hour Vital Signs Date Time Temp Pulse Resp B/P (MAP) Pulse Ox O2 Delivery O2 Flow Rate FiO2 09/20/18 19:27 88 84 95 09/20/18 18:00 89 82 89 09/20/18 16:00 Room Air 09/20/18 16:00 105 09/20/18 16:00 98.2 86 20 139/74 (95) 96 09/20/18 12:00 97.9 82 20 140/82 (101) 96 09/20/18 12:00 Room Air 09/20/18 12:00 78 09/20/18 10:00 90 92 92 09/20/18 09:00 85 136/77 09/20/18 09:00 85 136/77 09/20/18 08:59 136/77 09/20/18 08:00 Room Air 09/20/18 08:00 85 09/20/18 08:00 98.2 85 18 136/77 (96) 96 09/20/18 07:30 79 18 96 Room Air 21 09/20/18 04:00 80 09/20/18 04:00 Room Air 09/20/18 04:00 98.6 83 18 142/72 (95) 95 09/20/18 00:00 81 09/20/18 00:00 Room Air 09/20/18 00:00 97.5 82 20 146/79 (101) 96 09/19/18 22:00 145/86 (105) 09/19/18 21:00 145/86 09/19/18 20:54 85 173/83 09/19/18 20:00 82 09/19/18 20:00 98.8 85 20 173/83 (113) 98 09/19/18 20:00 Room Air 09/19/18 19:54 84 18 97 Room Air 21 General Appearance: alert, obese Neck: supple Cardiovascular: normal rate Respiratory/Chest: lungs clear Abdomen: normal bowel sounds, non tender, soft Extremities: no swelling Intake and Output 09/19/18 09/20/18 19:00 07:00 Intake Total 450 ml 120 ml Output Total 1500 ml 500 ml Balance -1050 ml -380 ml Intake Oral 450 ml 120 ml Output Urine Total 1500 ml 500 ml # Bowel Movements 3 3 Laboratory Tests Test 09/20/18 03:30 White Blood Count 8.6 K/UL (4.8-10.8) Red Blood Count 4.34 M/UL (4.20-5.40) Hemoglobin 11.3 G/DL (12.0-16.0) L Hematocrit 36.3 % (37.0-47.0) L Mean Corpuscular Volume 84 FL (80-99) Mean Corpuscular Hemoglobin 26.0 PG (27.0-31.0) L Mean Corpuscular Hemoglobin Concent 31.1 G/DL (32.0-36.0) L Red Cell Distribution Width 22.3 % (11.6-14.8) H Platelet Count 270 K/UL (150-450) Mean Platelet Volume 8.3 FL (6.5-10.1) Neutrophils (%) (Auto) 64.1 % (45.0-75.0) Lymphocytes (%) (Auto) 24.3 % (20.0-45.0) Monocytes (%) (Auto) 8.6 % (1.0-10.0) Eosinophils (%) (Auto) 1.9 % (0.0-3.0) Basophils (%) (Auto) 1.1 % (0.0-2.0) Sodium Level 143 MMOL/L (136-145) Potassium Level 3.8 MMOL/L (3.5-5.1) Chloride Level 105 MMOL/L (98-107) Carbon Dioxide Level 30 MMOL/L (21-32) Anion Gap 9 mmol/L (5-15) Blood Urea Nitrogen 13 mg/dL (7-18) Creatinine 1.0 MG/DL (0.55-1.30) Estimat Glomerular Filtration Rate mL/min (>60) Glucose Level 116 MG/DL (74-106) H Calcium Level 9.5 MG/DL (8.5-10.1) Magnesium Level 1.4 MG/DL (1.8-2.4) L Total Bilirubin 0.7 MG/DL (0.2-1.0) Aspartate Amino Transf (AST/SGOT) 14 U/L (15-37) L Alanine Aminotransferase (ALT/SGPT) 11 U/L (12-78) L Alkaline Phosphatase 90 U/L (46-116) Troponin I 0.476 ng/mL (0.000-0.056) Pro-B-Type Natriuretic Peptide 1443 pg/mL (0-125) H Total Protein 7.3 G/DL (6.4-8.2) Albumin 3.0 G/DL (3.4-5.0) L Globulin 4.3 g/dL Albumin/Globulin Ratio 0.7 (1.0-2.7) L Microbiology Date/Time Source Procedure Growth Status 09/17/18 20:45 Nasal Nares MRSA Culture - Final NO METHICILLIN RESISTANT STAPH AUREUS... Complete Jeffery Dumont MD Sep 20, 2018 19:48
[2018-09-20 20:00] VITALS: BP 148/86
[2018-09-20] MEDS: Atorvastatin 80mg tab ORAL SCH (20:14)
[2018-09-21] VITALS: BP 120/61
[2018-09-21 04:00] VITALS: BP 140/65
[2018-09-21] MEDS: NovoLOG Insulin Flexpen SUBQ SCH ×3 (05:54→13:14)
[2018-09-21] MEDS ORDERED: Tubing IV Secondary IV ONE (06:18)
[2018-09-21] MEDS ORDERED: NS 500ML ONE (06:18)
--- NOTE | 2018-09-21 07:10 | NUR ---
NURSE NOTES: RECEIVED REPORT FROM YOLANDE PEREIRA. PATIENT IS BREATHING EVEN AND UNLABORED ON ROOM AIR. PATIENT IS ON STUNT DOUBLE ON NSR. PT IS AAOX4, ABLE TO MAKE NEEDS KNOWN. SKIN IS CLEAN, DRY, INTACT, PURWICK IN PLACE AND DRAINING. RAC 20 G ASYMPTOMATIC, SL. BED IS LOCKED IN LOWEST POSITION, SR X3, CALL WARE W/ IN REACH, BED ALARM ON. WILL CONTINUE TO MONITOR AND FOLLOW W/ PLAN OF CARE.
--- NOTE | 2018-09-21 07:11 | NUR ---
HAND-OFF: Report given to YOLANDE ABBASI.
[2018-09-21 08:00] VITALS: BP 145/78
[2018-09-21] MEDS: Losartan 25mg tab ORAL SCH (09:41)
[2018-09-21] MEDS: Aspirin EC 81mg tab ORAL SCH (09:42)
[2018-09-21] MEDS: metFORMIN 500mg tab ORAL SCH (09:42)
[2018-09-21] MEDS: Heparin 5000 units/ml inj SUBQ SCH (09:48)
--- NOTE | 2018-09-21 10:12 | NUR ---
09/21 CONCERNING MRI...PT STILL REFUSING, YOLANDE ABBASI IS AWARE. TJB 10:00
[2018-09-21] MEDS ORDERED: LOSARTAN POTASS25 MG ORAL (11:37)
[2018-09-21] MEDS ORDERED: METOPROLOL TAR100 M1 ORAL (11:37)
--- NOTE | 2018-09-21 11:39 | Pulmonology Progress Note ---
Assessment/Plan Problems: (1) Non-ST elevation (NSTEMI) myocardial infarction (2) Palpitations (3) Elevated troponin (4) Atrial fibrillation (5) Hypokalemia (6) Diabetes mellitus (7) S/P ablation of atrial fibrillation Assessment/Plan BP slightly better heart rate controlled sliding scale diabetic diet K supplement symptomatic treatment dvt prophylaxis. dc home with currentl Subjective ROS Limited/Unobtainable: No Constitutional: Reports: no symptoms HEENT: Repors: no symptoms Respiratory: Reports: no symptoms Allergies: Coded Allergies: IODINE (Unverified Allergy, Unknown, 09/17/18) Objective Last 24 Hour Vital Signs Date Time Temp Pulse Resp B/P (MAP) Pulse Ox O2 Delivery O2 Flow Rate FiO2 09/21/18 09:42 93 145/78 09/21/18 09:41 145/78 09/21/18 09:00 93 145/78 09/21/18 08:00 Room Air 09/21/18 08:00 98.6 93 20 145/78 (100) 95 09/21/18 06:47 88 18 96 Room Air 21 09/21/18 04:00 Room Air 09/21/18 04:00 87 09/21/18 04:00 97.6 78 20 140/65 (90) 98 09/21/18 00:00 81 09/21/18 00:00 Room Air 09/21/18 00:00 97.8 80 18 120/61 (80) 98 09/20/18 20:34 84 18 95 Room Air 21 09/20/18 20:15 146/80 09/20/18 20:15 70 146/80 09/20/18 20:00 Room Air 09/20/18 20:00 97.5 85 16 148/86 (106) 96 09/20/18 20:00 95 09/20/18 19:27 88 84 95 09/20/18 18:00 89 82 89 09/20/18 16:00 Room Air 09/20/18 16:00 105 09/20/18 16:00 98.2 86 20 139/74 (95) 96 09/20/18 12:00 97.9 82 20 140/82 (101) 96 09/20/18 12:00 Room Air 09/20/18 12:00 78 Intake and Output 09/20/18 09/21/18 19:00 07:00 Intake Total 400 ml 480 ml Output Total 600 ml 1000 ml Balance -200 ml -520 ml Intake Oral 400 ml 480 ml Output Urine Total 600 ml 1000 ml # Bowel Movements 2 General Appearance: WD/WN, no acute distress HEENT: atraumatic Respiratory/Chest: chest wall non-tender, lungs clear Breasts: no masses Cardiovascular: normal peripheral pulses, normal rate Abdomen: normal bowel sounds, soft, non tender Genitourinary: normal external genitalia Extremities: no cyanosis 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 grossly normal, no motor/sensory deficits Lymphatic: no neck adenopathy Current Medications Medications (Trade) Dose Ordered Sig/Ashly Route PRN Reason Start Time Stop Time Status Last Admin Dose Admin Acetaminophen (Tylenol) 650 mg Q4H PRN ORAL FEVER 09/17/18 18:44 10/17/18 18:43 Albuterol/ Ipratropium (Albuterol/ Ipratropium) 3 ml Q4H PRN HHN Shortness of Breath 09/17/18 18:44 09/22/18 18:43 Amlodipine Besylate (Norvasc) 10 mg DAILY ORAL 09/18/18 09:00 10/18/18 08:59 09/21/18 09:42 Aspirin (Ecotrin) 81 mg DAILY ORAL 09/19/18 09:00 10/19/18 08:59 09/21/18 09:42 Atorvastatin Calcium (Lipitor) 80 mg BEDTIME ORAL 09/18/18 21:00 10/18/18 20:59 09/20/18 20:14 Clopidogrel Bisulfate (Plavix) 75 mg DAILY ORAL 09/18/18 09:00 10/18/18 08:59 09/21/18 09:40 Dextrose (Dextrose 50%) 25 ml Q30M PRN IV Hypoglycemia 09/18/18 18:30 10/18/18 18:29 Dextrose (Dextrose 50%) 50 ml Q30M PRN IV Hypoglycemia 09/18/18 18:30 10/18/18 18:29 Diltiazem HCl (Cardizem) 10 mg Q1H PRN IV heart rate more than 120, 09/17/18 19:18 10/17/18 19:17 Heparin Sodium (Porcine) (Heparin 5000 units/ml) 5,000 units EVERY 12 HOURS SUBQ 09/17/18 21:00 10/17/18 20:59 09/21/18 09:48 Insulin Aspart (NovoLOG) BEFORE MEALS AND HS SUBQ 09/18/18 21:00 10/18/18 20:59 09/20/18 20:20 Labetalol HCl (Normodyne) 20 mg Q1H PRN IV sbp more than 160 09/17/18 18:45 10/17/18 18:44 09/19/18 20:54 Losartan Potassium (Cozaar) 25 mg EVERY 12 HOURS ORAL 09/19/18 21:00 10/19/18 20:59 09/21/18 09:41 Metformin HCl (Glucophage) 500 mg BID ORAL 09/18/18 18:00 10/18/18 17:59 09/21/18 09:42 Metoprolol Tartrate (Lopressor) 100 mg EVERY 12 HOURS ORAL 09/18/18 21:00 10/18/18 20:59 Nitroglycerin (Ntg) 0.4 mg Q5MIN X 3 DOSES PRN SL Prn Chest Pain 09/17/18 18:44 10/17/18 18:43 09/19/18 06:37 Ondansetron HCl (Zofran) 4 mg Q6H PRN IVP Nausea & Vomiting 09/17/18 18:44 10/17/18 18:43 Pantoprazole (Protonix) 40 mg DAILY ORAL 09/18/18 09:00 10/18/18 08:59 09/21/18 09:41 Polyethylene Glycol (Miralax) 17 gm DAILYPRN PRN ORAL Constipation 09/17/18 18:47 10/17/18 18:46 Temazepam (Restoril) 15 mg HSPRN PRN ORAL Insomnia 09/17/18 21:00 09/24/18 20:59 Mireille Guardado MD Sep 21, 2018 11:39
[2018-09-21 12:00] VITALS: BP 126/87
--- NOTE | 2018-09-21 12:18 | Discharge Summary ---
Discharge Summary Hospital Course Date of Admission Sep 17, 2018 at 17:18 Date of Discharge Admitting Diagnosis Arrythmia/ Hypertension HPI Helen Cruz is a 78 year old female who was admitted on Sep 17, 2018 at 17: 18 for Arrythmia/Hypertension Hospital Course Last 24 Hour Vital Signs Date Time Temp Pulse Resp B/P (MAP) Pulse Ox O2 Delivery O2 Flow Rate FiO2 09/21/18 09:42 93 145/78 09/21/18 09:41 145/78 09/21/18 09:00 93 145/78 09/21/18 08:00 Room Air 09/21/18 08:00 98.6 93 20 145/78 (100) 95 09/21/18 06:47 88 18 96 Room Air 21 09/21/18 04:00 Room Air 09/21/18 04:00 87 09/21/18 04:00 97.6 78 20 140/65 (90) 98 09/21/18 00:00 81 09/21/18 00:00 Room Air 09/21/18 00:00 97.8 80 18 120/61 (80) 98 09/20/18 20:34 84 18 95 Room Air 21 09/20/18 20:15 146/80 09/20/18 20:15 70 146/80 09/20/18 20:00 Room Air 09/20/18 20:00 97.5 85 16 148/86 (106) 96 09/20/18 20:00 95 09/20/18 19:27 88 84 95 09/20/18 18:00 89 82 89 09/20/18 16:00 Room Air 09/20/18 16:00 105 09/20/18 16:00 98.2 86 20 139/74 (95) 96 Physical Exam General: No acute distress, awake and alert HEENT: NCAT, sclera anicteric, PERRL, EOMI. Neck: Supple, no significant jugular venous distention, Lungs: Good inspiratory effort, clear to auscultation bilaterally, no Wheeze or Rales. Heart: Regular rate and rhythm, normal S1/S2, no murmur Abdomen: soft, nontender, nondistended. Normoactive bowel sounds, Obesity. / Rectal: Refused and deferred. Extremities: No Cyanosis , clubbing or edema. Neuro: A&O x 3, Able to move all extremities Skin: warm, no rashes or lesions Psych: Normal mood and affect Discharge Discharge Disposition Patient was discharged to home today. Martin Harrison MD Sep 21, 2018 12:18
--- NOTE | 2018-09-21 14:04 | NUR ---
Home Discharge: Patient is being discharged to home with home health services. Awake, alert and oriented x 4. All medical devices such as IV, heart monitor, and ID band were removed. Discussed discharge paperwork, belonging checklist signed, and prescriptions was received. Patient left via wheelchair to taxi with all personal belongings. Patient had taxi voucher.
--- NOTE | 2018-09-22 01:30 | Discharge Summary ---
DATE OF ADMISSION: 09/17/2018 DATE OF DISCHARGE: 09/21/2018 HOSPITAL COURSE: This is a 78-year-old very delightful female with past medical history significant for hypertension, diabetes type 2, morbid obesity, dyslipidemia, and coronary artery disease, who has presented to the hospital, complaining about almost passed out and palpitation. The patient recently underwent atrial fibrillation status post ablation at [facility] in August of 2018. Throughout the hospital course, the patient was followed by Dr. Guardado from Pulmonary Critical Care, Dr. Jeffery Dumont from Cardiology, and Dr. Lambert from electrophysiology. The patient's status gradually improved. She said that she was in atrial fibrillation status post flecainide therapy and now is off the antiarrhythmic since the ablation. She had some troponin leak. Her status improves when discharged home today to be followed up as outpatient with my office within one week. I advised the patient when she comes to my office, she needs to bring all the list of medication in order for me to monitor closely. FINAL DIAGNOSES: 1. Cardiac arrhythmias with atrial fibrillation, status post ablation. 2. Near syncope. 3. Diabetes type 2. 4. Hypertension. 5. Dyslipidemia. 6. Morbid obesity. 7. AV emeterio reentry tachycardia. 8. Atherosclerotic heart disease. MEDICATIONS AT DISCHARGE: Continue discharge medication list. ACTIVITY: As tolerated. DIET: An 1800-ADA cardiac diet. The patient was advised to follow up in my office within one week. Martin Harrison M.D. DR: ARDEN JOB#: [id number] CC:
== END 2018-09-21 14:07 | disposition home health service (06) | DRG 309 ==
LOC: EDBD 14:52 → EDBEDREQ 16:07 → EDBEDREQSVC 16:07 → EMR 17:15 → 2W 17:18 → EDBEDREQ 17:31 → 2W 20:30
DX: I47.1 Supraventricular tachycardia (principal); N39.0 Urinary tract infection, site not specified; I48.91 Unspecified atrial fibrillation; E11.9 Type 2 diabetes mellitus without complications; Z79.84 Long term (current) use of oral hypoglycemic drugs; Z79.82 Long term (current) use of aspirin; I25.10 Atherosclerotic heart disease of native coronary artery without angina pectoris; E66.01 Morbid (severe) obesity due to excess calories; R55 Syncope and collapse; E78.5 Hyperlipidemia, unspecified; Z88.8 Allergy status to other drugs, medicaments and biological substances; E83.42 Hypomagnesemia; E87.6 Hypokalemia; I10 Essential (primary) hypertension; Z68.35 Body mass index [BMI] 35.0-35.9, adult
CPT/HCPCS: 36415; 71045; 80048; 80053; 80061; 80162; 80307; 81003; 82550; 83690; 83735; 83880; 84443; 84484; 85025; 85610; 85730; 86140; 87081; 93005; 93306; 93880; 94664; 96365; 96372; 99285; J1815; J8499